=== PATIENT | female | born 1930 | race Caucasian/White ===

== ENCOUNTER 2017-07-06 11:10 | Inpatient (IN) ==
--- NOTE | 2017-07-06 11:59 | Emergency Department Note ---
Disposition Clinical Impression: Atrial fibrillation with RVR, ANAY (acute kidney injury) Failure to thrive Qualifiers: Failure to thrive age range: in adult Qualified Code(s): R62.7 - Adult failure to thrive Disposition: Admitted As Inpatient Condition: Good Referrals: Bhavna Colunga MD [Primary Care Provider] - Forms: ED Satisfaction Letter, Work/School Release Time of Disposition: 14:19 General Adult HPI - General Chief complaint: ED General Medical Stated complaint: decreased intake, cough Time Seen by Provider: 07/06/17 11:19 Source: family Limitations: no limitations Nursing Notes Reviewed: Yes Vital Signs Reviewed: Yes - History of Present Illness HPI Narrative: Patient is an 87-year-old female that is brought into the emergency room by her family for concerns for failure to thrive. They states that over the past couple months she has been losing weight and not eating as much. She states that she just does not have an appetite. They state that she has lost approximately 10 pounds in the past month. She was also recently at her primary care physician and diagnosed with bronchitis and given a Z-Hubert for which she finished approximately 2 days ago. They called the primary care physician today and they recommended that she come to be seen in the emergency department. He states that she has become weaker and more short of breath with exertion. Patient denies any nausea or vomiting but does state that she has had some diarrhea and the family reports possibly some reddish color within the stool. Patient's son reports that she had an x-ray done on Monday which showed possible pulmonary edema. Pain Scale: 0 - Related Data Home Medications Medication Instructions Recorded Confirmed Simvastatin [Zocor] 40 mg PO DAILY 07/25/15 07/25/15 Folic Acid 1 mg PO DAILY 07/06/17 07/06/17 Furosemide [Lasix] 40 mg PO DAILY 07/06/17 07/06/17 Hydroxychloroquine [Plaquenuil] 300 mg PO DAILY 07/06/17 07/06/17 Methotrexate [Otrexup] 12.5 mg PO QWEEK 07/06/17 07/06/17 Omeprazole [PriLOSEC] 40 mg PO DAILY 07/06/17 07/06/17 Oxycodone HCl [Oxycodone HCl] 5 mg PO TID PRN 07/06/17 07/06/17 Potassium Chloride [K-Tab ER] 10 meq PO DAILY 07/06/17 07/06/17 Rivaroxaban [Xarelto] 15 mg PO DAILY 07/06/17 07/06/17 sulfaSALAzine [Sulfasalazine] 500 mg PO BID 07/06/17 07/06/17 Allergies Allergy/AdvReac Type Severity Reaction Status Date / Time No Known Allergies Allergy Verified 07/06/17 11:28 All systems ED: reviewed and negative except as stated. Constitutional: Denies: fever, chills Cardiovascular: Denies: chest pain, palpitations Respiratory: Reports: cough, dyspnea. Denies: wheezes Gastrointestinal: Reports: diarrhea. Denies: abdominal pain, nausea, vomiting Genitourinary: Denies: urgency, dysuria, frequency, hematuria Neurological: Reports: weakness Endocrine: Reports: fatigue Past Medical History - Past Medical History Medical history: Reports: atrial fibrillation, CHF, hyperlipidemia, hypertension , RA Surgical history: Reports: hip replacement, knee replacement Psychiatric history: Reports: no psych history CONSTRUCTION PROJECT ASSISTANT history: Reports: no CONSTRUCTION PROJECT ASSISTANT history - Social History Smoking Status: Never smoker Smokeless Tobacco Status: No Alcohol use: Reports: none Drug use: Reports: none Physical Exam - General Limitations: no limitations General appearance: alert, in no apparent distress - Head Head exam: atraumatic, normocephalic - Eye Eye exam: Present: normal appearance, EOMI - Neck Neck exam: Present: normal inspection, full ROM, trachea midline - Respiratory Respiratory exam: Present: other (Diffuse rales bilaterally). Absent: respiratory distress - Cardiovascular Cardiovascular exam: Present: tachycardia, irregular rhythm, normal heart sounds , +S1, +S2 - Abdominal Exam Abdominal exam: Present: soft, Non-Tender, normal bowel sounds - Extremities Exam Extremities exam: Present: other (1+ pitting edema bilateral lower extremities) - Neurological Exam Neurological exam: Present: alert, oriented X3 - Psychiatric Psychiatric exam: Present: normal affect, normal mood - Skin Skin exam: Present: warm, dry, intact Course Vital Signs Temperature 98.3 F 07/06/17 11:12 Pulse Rate 132 07/06/17 11:12 Respiratory Rate 18 07/06/17 11:12 Blood Pressure 95/71 07/06/17 11:12 O2 Sat by Pulse Oximetry 93 07/06/17 11:12 Temperature 98.3 F 07/06/17 11:12 Pulse Rate 118 07/06/17 14:57 Respiratory Rate 22 07/06/17 14:57 Blood Pressure 99/83 07/06/17 14:57 O2 Sat by Pulse Oximetry 94 07/06/17 14:57 Oxygen Delivery Oxygen Delivery Room Air Medical Decision Making - MDM Narrative Medical decision making narrative: Due to the patient having failure to thrive and weight loss we will order CBC, BMP, urinalysis, EKG, troponin, chest x-ray as well as a CT of the head. Per radiology the CT of the head showed no acute findings. Per radiology the chest x-ray showed improvement of the patient's congestive heart failure and possible basilar atelectasis on the left. The patient was unable to provide a urine obtained a urinalysis. Patient does appear to have a decrease in her kidney function. Her creatinine is 1.2 with a GFR of 43. Patient's troponin was 0.03. EKG showed atrial fibrillation with rapid ventricular response. The patient will need to be admitted to the hospital at this time. I called spoke with the hospitalist and have accepted the patient to his service. The patient will be admitted to the hospital this time. - Medical Records Medical records reviewed: Yes I reviewed the patient's medical records. - Lab Data Lab results reviewed: Yes I reviewed the patient's lab results. Result diagrams: 07/06/17 12:39 07/06/17 12:39 Lab Results 07/06/17 07/06/17 07/06/17 Range/Units 12:39 12:39 12:39 WBC 7.9 (4.3-11.1) K/mcL RBC 4.95 (3.82-4.97) M/mcL Hgb 16.0 H (11.5-15.4) g/dL Hct 48.7 H (35.3-44.9) % MCV 98.4 (83.0-100.0) fL MCH 32.3 (28.0-33.3) pg MCHC 32.9 (31.6-35.5) g/dL RDW 13.9 (11.5-14.5) % Plt Count 241 (140-400) K/mcL MPV 10.3 (9.4-12.4) fL Immature Gran % 0.3 (0-4) % Seg Neutrophils % 69.9 % Lymphocytes % 22.4 % Monocytes % 6.9 % Eosinophils % 0.1 % Basophils % 0.4 % Neutrophils # 5.5 (1.6-8.9) K/mcL Lymphocytes # 1.8 (0.6-4.6) K/mcL Monocytes # 0.6 (0.0-1.3) K/mcL Eosinophils # 0.0 (0.0-0.6) K/mcL Basophils # 0.0 (0.0-0.2) K/mcL Nucleated RBCs/100 WBC 0.3 H (0) /100 WBC Platelet Estimate Normal (Normal) Sodium 142 (136-145) mEq/L Potassium 4.0 (3.5-5.1) mEq/L Chloride 100 (98-107) mEq/L Carbon Dioxide 29 (23-29) mEq/L BUN 26 H (8-23) mg/dL Creatinine 1.20 (0.60-1.20) mg/dL Est GFR ( Amer) 52 L (> 60) Est GFR (Non-Af Amer) 43 L (> 60) BUN/Creatinine Ratio 22 (6-26) Glucose 128 H (70-105) mg/dL Calculated Osmolality 300 (280-300) Calcium 9.7 (8.6-10.3) mg/dL Troponin I 0.03 (< 0.04) ng/mL - Radiology Data Radiology results reviewed: Yes I reviewed the patient's radiology results. Chest X-Ray 07/06/17 11:59 IMPRESSION: Overall improvement of congestive heart failure. Left basilar atelectasis likely related to elevation of the left hemidiaphragm. D/ / 07/06/2017 12:59:59 Maty Webster MD / Jessica Campos Interpreting Provider: Maty Webster MD Head CT 07/06/17 11:59 IMPRESSION: 1. No evidence of acute intracranial abnormality. 2. Paranasal sinus disease as described above. D/ / 07/06/2017 13:14:14 Jerson Lee MD / Jessica Campos Interpreting Provider: Jerson Lee MD - EKG Data EKG #1 EKG attestation: Yes I reviewed and interpreted this EKG. EKG results narrative: EKG shows atrial fibrillation with rapid ventricular response at a rate of 127 bpm. QRS duration is 76, QTc of 383. No STEMI noted on this EKG. This is compared to previous EKG on 07/25/15 that showed atrial fibrillation at 87 bpm
--- NOTE | 2017-07-06 12:00 | Emergency Department Note ---
START Narrative - START START: I examined this patient and my medical decision-making was reviewed with the APARTMENT MAINTENANCE WORKER/PA/Advanced Practice Nurse/Resident Physician. I agree with the documented findings, disposition and treatment plan as described except to the extent set forth below. ED attending: Patient's emergency medicine resident Dr. Ronen Layne. Please see copy of this note for H&P evaluation and management and ED disposition. We both had independent [id number] time in contact with this patient. Briefly: A 87-year-old female brought in by family for in essence failure to thrive for several months with decreasing energy and weight loss to Explain. Was Seen a Week Ago and Diagnosed with Bronchitis by Her PCP Put on Zithromax. Says Some Loose Stools. Maybe with Some Redness. She Has Bibasilar Rales. She Is Awake and Alert GCS 15. Afebrile with Stable Vital Signs. Patient Will Get Screening Labs EKG Urinalysis and Chest X-Ray. Disposition Pending.
[2017-07-06 12:47] LABS: Basophils % 0.4 %; Eosinophils % 0.1 %; Hematocrit 48.7 % (35.3-44.9); Immature Granulocytes % 0.3 % (0-4); Lymphocytes # 1.8 K/mcL (0.6-4.6); Lymphocytes % 22.4 %; Mean Corpuscular HGB Conc 32.9 g/dL (31.6-35.5); Mean Corpuscular Hemoglobin 32.3 pg (28.0-33.3); Mean Corpuscular Volume 98.4 fL (83.0-100.0); Mean Platelet Volume 10.3 fL (9.4-12.4); Monocytes % 6.9 %; Neutrophils # 5.5 K/mcL (1.6-8.9); Nucleated Red Blood Cells 0.3 /100 WBC (0); Platelet Count 241 K/mcL (140-400); Red Blood Count 4.95 M/mcL (3.82-4.97); Red Cell Distribution Width 13.9 % (11.5-14.5); Segmented Neutrophils % 69.9 %
[2017-07-06 12:49] LABS: Monocytes # 0.6 K/mcL (0.0-1.3)
[2017-07-06 13:12] LABS: Calcium 9.7 mg/dL (8.6-10.3)
[2017-07-06 14:13] LABS: Platelet Estimate Normal (Normal)
[2017-07-06] MEDS ORDERED: *HR* Metoprolol 5 MG/5 ML VIAL IVP ONE (15:10)
[2017-07-06] MEDS ORDERED: 0.9 % Sodium Chloride 1,000 ML IVC SCH ×2 (15:15→17:47)
[2017-07-06] MEDS ORDERED: *HR* Digoxin 0.5 MG/2 ML AMPUL IVP ONE (17:47)
--- NOTE | 2017-07-06 17:47 | Event Note ---
Date of Encounter: 07/06/17 Time of Encounter: 17:43 Patient seen and examined with nurse practitioner. Patient presents with generalized weakness lethargy, decreased appetite. The patient was recently treated for acute bronchitis and was started on azithromycin. Continues to notice increased cough and sputum production. She was never a smoker and has no chronic lung conditions. Will check sputum culture. Start the patient on Levaquin 750 mg IV daily. Check swallow eval. Patient has afib with RVR, and ANAY so will gently hydrate. Digoxin 0.125 mg IV once. PT OT and social workers to see the patient
[2017-07-06] MEDS ORDERED: Acetaminophen 325 MG TABLET PO PRN (19:09)
[2017-07-06] MEDS ORDERED: Naloxone 0.4 MG/ML INJ IVP PRN (19:09)
[2017-07-06] MEDS ORDERED: Ondansetron 4 MG/2 ML VIAL IVP PRN (19:09)
[2017-07-06] MEDS ORDERED: *HR* OxyCODONE Immed Rel 5 MG TABLET PO PRN (19:19)
[2017-07-06] MEDS: sulfaSALAzine 500 MG TABLET PO SCH (20:25)
[2017-07-06] MEDS: Levofloxacin 750 MG/150 ML 750 MG/150 ML BAG IVPB SCH (20:27)
[2017-07-06] MEDS ORDERED: Benzonatate 100 MG CAPSULE PO PRN (20:34)
--- NOTE | 2017-07-06 20:39 | Internal Med History&Physical ---
Date of Encounter: 07/06/17 Time of Encounter: 18:00 Assessment and Plan (1) Acute exacerbation of CHF (congestive heart failure) Current visit: Yes Status: Acute Acute exacerbation of CHF complicated by current unresolved bronchitis. Pt. reports increased dyspnea, SOB, and cough over the past several days as well as bilateral pedal edema. 1-View CXR today shows overall improvement of congestive heart failure. Left basilar atelectasis likely related to elevation of the left hemidiaphragm. Pt. takes PO lasix 40 mg daily. Will hold PO lasix and administer 20 mg IVP lasix BID. Continuous cardiac telemetry. Monitor I&O and daily weight. 1.5L daily fluid restriction. Pt. discussed w/Dr. Olguin who is in agreement w/plan of care. Pt. is at high risk for further morbidity, infection, and/or cardiac/respiratory distress based on current sx, failure to thrive, hx, and risk factors. Inpatient. Qualifiers: Congestive heart failure type: unspecified congestive heart failure type Qualified Code(s): I50.9 - Heart failure, unspecified (2) Bronchitis Current visit: Yes Status: Acute Acute bronchitis that was dx by PCP on Monday. Pt. reports she was placed on Z- pack which she finished on Monday but sx worsened. Sputum culture ordered. IVPB levaquin 750 Q48 for infection coverage d/t current ANAY. Will adjust abx coverage based on sputum results. (3) ANAY (acute kidney injury) Current visit: Yes Status: Acute ANAY with current creatinine of 1.20 and GFR 43 on admission. Will use IV fluids judiciously if warranted d/t current ANAY superimposed w/CHF exacerbation. Will hold methotrexate and other nephrotoxins. Monitor I&O. (4) Failure to thrive Current visit: Yes Status: Acute Acute failure to thrive. Pt. reports reduced appetite over the past 6-7 days and a 10-pound weight loss over the past month. Nutrition consult ordered for PO supplementation. Qualifiers: Failure to thrive age range: in adult Qualified Code(s): R62.7 - Adult failure to thrive (5) HLD (hyperlipidemia) Current visit: Yes Status: Chronic Hx of chronic HLD. ipid panel in a.m. labs. Continue pts. Zocor. Qualifiers: Hyperlipidemia type: pure hypercholesterolemia Qualified Code(s): E78.00 - Pure hypercholesterolemia, unspecified; E78.0 - Pure hypercholesterolemia (6) HTN (hypertension) Current visit: Yes Status: Chronic Hx of chronic HTN. Monitor pt. and VS. Pt. does not currently take HTN medication. Will add digoxin 0.125 IV once. Qualifiers: Hypertension type: essential hypertension Qualified Code(s): I10 - Essential (primary) hypertension (7) Rheumatoid arthritis Current visit: Yes Status: Chronic Hx of chronic RA. Pt. takes methotrexate for RA once weekly. Will hold for now d /t nephrotoxic qualities and patient's current ANAY. Stair-step pain medications for pain mgmt. Continue patient's sulfasalazine and Plaquenil. Qualifiers: Rheumatoid arthritis location: unspecified site Rheumatoid factor presence : unspecified presence Qualified Code(s): M06.9 - Rheumatoid arthritis, unspecified (8) Atrial fibrillation with RVR Current visit: Yes Status: Chronic Hx of chronic Afib. Continue pts. Xarelto. Continuous cardiac telemetry. (9) DVT prophylaxis Current visit: Yes Status: Acute Continue patient's Xarelto for DVT prophylaxis. Monitor patient for signs of bleeding. Internal Medicine - H&P: HPI Chief complaint: Weakness/Failure to thrive Admitted From: Emergency Dept Plans for Post Hospital Care: Home History of present illness: Ms. Martínez is a 87 year old female with medical hx of chronic atrial fibrillation , CHF, HLD, HTN, NRA presents from the ED with chief complaint of generalized weakness, decreased take the past 6-7 days, loss of 10 pounds in 1, and increasing cough. Patient reports she was seen by PCP on Monday and diagnosed with bronchitis and placed on Z-Hubert which she finished on Monday. Patient reports symptoms have not subsided and have worsened. Patient's son reports presents of bright blood in patient's stool within the past 3-4 weeks. Patient reports SOB/dyspnea and recent anorexia but denies recent illness, fever, chills , nausea, vomiting, headache, changes in vision, chest pain, abdominal pain, diarrhea, constipation, numbness, tingling, dizziness, lightheadedness, pre- syncope, or syncope. Past Med Surg Social Fam HX - Past Medical History Source: patient, old records reviewed, obtained from family Medical history: atrial fibrillation, CHF, hyperlipidemia, hypertension, RA Psychiatric history: no psych history - Past Surgical History Surgical History: hip replacement, knee replacement - Social History Smoking Status: Never smoker Smokeless Tobacco Status: No Alcohol use: none Drug use: none Current living situation: Home, With Family Activity Level: Uses cane/walker Recent Out of Country Travel Within the Last 8 Weeks: No Exposure or Possible Exposure to Illness During Travel: No - Family History Mother Race: Family Member Ethnicity: Non- Living Status: Age at : 84 Cause of : Heart failure Hx Family Cardiac Disorders: Yes (HF) Father Race: Family Member Ethnicity: Non- Living Status: Age at : 71 Cause of : [place] Hx Family Cardiac Disorders: Yes (LA) Brother Race: Family Member Ethnicity: Non- Living Status: Age at : 80 Cause of : LA Hx Family Cardiac Disorders: Yes (LA x4, Open heart surgery) Internal Medicine - H&P: Meds Simvastatin [Zocor] 40 mg PO HS 07/25/15 [History] Folic Acid 1 mg PO DAILY 07/06/17 [History] Furosemide [Lasix] 40 mg PO DAILY 07/06/17 [History] Hydroxychloroquine [Plaquenuil] 300 mg PO DAILY 07/06/17 [History] Methotrexate [Otrexup] 12.5 mg PO QWEEK 07/06/17 [History] Omeprazole [PriLOSEC] 40 mg PO DAILY 07/06/17 [History] Oxycodone HCl [Oxycodone HCl] 5 mg PO TID PRN 07/06/17 [History] Potassium Chloride [K-Tab ER] 10 meq PO DAILY 07/06/17 [History] Rivaroxaban [Xarelto] 15 mg PO DAILY 07/06/17 [History] sulfaSALAzine [Sulfasalazine] 500 mg PO BID 07/06/17 [History] 3 Allergy/AdvReac Type Severity Reaction Status Date / Time No Known Allergies Allergy Verified 07/06/17 11:28 All Systems PM: A 10-system review of systems was performed and is negative for pertinent findings except as documented above in the HPI. - Constitutional Constitutional: as per HPI, fatigue, weakness, weight loss, no chills, no fever( s), no night sweats - EENT Eyes: no change in vision, no discharge, no pain, no photophobia Ears: no ear discharge, no ear pain, no tinnitus Nose, mouth and throat: no dysphagia, no nasal discharge, no neck pain, no sore throat - Breasts Breasts: as per HPI - Cardiovascular Cardiovascular ROS IM: as per HPI, dyspnea, dyspnea on exertion, edema, irregular heart rhythm, orthopnea, no chest pain, no diaphoresis, no lightheadedness, no palpitations, no syncope - Respiratory Respiratory: as per HPI, cough, dyspnea, dyspnea on exertion, no wheezing, no excessive phlegm production - Gastrointestinal Gastrointestinal: hematochezia (3-4 weeks ago), no abdominal pain, no diarrhea, no hematemesis, no melena, no nausea, no vomiting - Genitourinary Genitourinary: no change in urinary stream, no dysuria, no flank pain, no hematuria Menstruation: as per HPI - Musculoskeletal Musculoskeletal ROS IM: no numbness, no tingling - Integumentary Integumentary IM: no rash, no unusual bruising - Neurological Neurological ROS: no confusion, no convulsions, no focal weakness, no numbness, no tingling, no tremor(s) - Psychiatric Psychiatric: as per HPI - Endocrine Endocrine IM: as per HPI - Hematologic/Lymphatic Hematologic/Lymphatic: no easy bruising - Allergic/Immunologic Allergic/Immunologic: as per HPI - Constitutional Vitals: Temp Pulse Resp BP Pulse Ox 97.4 F L 110 15 101/70 91 07/06/17 18:49 07/06/17 18:49 07/06/17 18:49 07/06/17 18:49 07/06/17 18:49 General appearance: Present: cooperative, A&O X 3, pleasant, no acute distress, underweight, answers questions appropriately - Head Head exam: Present: atraumatic, normocephalic - Eye Eye exam: Present: PERRL, conjuntiva pink, sclera anicteric Pupils: Present: PERRL - ENT ENT exam: Present: normal exam - Neck Neck exam general surgery: Present: normal inspection, supple, trachea midline. Absent: lymphadenopathy - Respiratory Respiratory exam: Present: accessory muscle use, wheezes - Cardiovascular Cardiovascular exam: Present: irregular rhythm - GI/Abdominal GI/Abdominal exam: Present: normal bowel sounds, soft, no peritoneal signs. Absent: distended, tenderness - Rectal Rectal exam: Present: deferred - Additional comments: exam deferred. - Extremities Exam Extremities exam: Present: pedal edema, warm, radial pulses palpable and symmetrical. Absent: calf tenderness, cyanotic - Back Exam Back exam: Present: normal inspection - Neurological Exam Neurological exam: Present: CN II-XII intact, oriented X3, no focal deficits. Absent: pronater drift, facial droop, speech deficit - Psychiatric Psychiatric exam: Present: normal affect, normal mood - Skin Skin exam: Present: dry, intact Internal Med - H&P Results - Labs CBC & Chem 7: 07/06/17 12:39 07/06/17 12:39 - EKG Data Prior EKG available for review: yes EKG comments: 07/06/17 20:45 EKG dated 07/25/15 is atrial fibrillation with possible inferior myocardial infarction of indeterminate age. EKG dated 07/06/17 shows atrial fibrillation with rapid ventricular response, low QRS voltage in precordial leads, and abnormal rhythm ECG. - Diagnostic Studies Chest x-ray Additional comments: Impressions Chest X-Ray 07/06/17 11:59 IMPRESSION: Overall improvement of congestive heart failure. Left basilar atelectasis likely related to elevation of the left hemidiaphragm. D/ / 07/06/2017 12:59:59 Maty Webster MD / Jessica Campos Interpreting Provider: Maty Webster MD CT scan - head Additional comments: Impressions Head CT 07/06/17 11:59 IMPRESSION: 1. No evidence of acute intracranial abnormality. 2. Paranasal sinus disease as described above. D/ / 07/06/2017 13:14:14 Jerson Lee MD / Jessica Campos Interpreting Provider: Jerson Lee MD
[2017-07-06] MEDS: Furosemide 20 MG/2 ML VIAL IVP SCH (21:40)
[2017-07-07] MEDS: dilTIAZem HCl 100 MG in D5% in Water 50 ML IVC SCH ×3 (01:14→13:00)
[2017-07-07] MEDS ORDERED: 0.9 % Sodium Chloride 250 ML ONE (01:17)
[2017-07-07 06:36] LABS: Basophils % 0.2 %; Hemoglobin 14.5 g/dL (11.5-15.4); Immature Granulocytes % 0.2 % (0-4); Lymphocytes % 16.5 %; Mean Corpuscular Hemoglobin 32.5 pg (28.0-33.3); Mean Corpuscular Volume 98.7 fL (83.0-100.0); Mean Platelet Volume 10.8 fL (9.4-12.4); Monocytes # 0.4 K/mcL (0.0-1.3); Monocytes % 6.7 %; Neutrophils # 4.8 K/mcL (1.6-8.9); Platelet Count 223 K/mcL (140-400); Red Blood Count 4.46 M/mcL (3.82-4.97); Red Cell Distribution Width 13.8 % (11.5-14.5); Segmented Neutrophils % 76.4 %
[2017-07-07 06:49] LABS: Hemoglobin A1C 5.9 %
[2017-07-07 06:54] LABS: Alanine Aminotransferase 9 Units/L (7-52); Albumin 3.6 g/dL (3.5-5.7); Albumin/Globulin Ratio 1.4 (1.1-2.2); Alkaline Phosphatase 72 Units/L (34-104); Aspartate Amino Transferase 25 Units/L (13-39); BUN/Creatinine Ratio 22 (6-26); Bilirubin,Total 0.5 mg/dL (0.3-1.0); Blood Urea Nitrogen 23 mg/dL (8-23); Calcium 8.9 mg/dL (8.6-10.3); Carbon Dioxide 27 mEq/L (23-29); Chloride 102 mEq/L (98-107); Chol/HDL Ratio 5.6 (0-4.9); Cholesterol 157 mg/dL (< 200); Globulin 2.6 g/dL (2.4-3.5); Glucose 113 mg/dL (70-105); HDL Cholesterol 28 mg/dL (40-59); LDL Cholesterol,Calculated 100 mg/dL (0-99); Magnesium 1.3 mg/dL (1.6-2.6); Osmolality,Calculated 302 (280-300); Potassium 3.3 mEq/L (3.5-5.1); Sodium 144 mEq/L (136-145); Total Protein 6.2 g/dL (6.4-8.9); Triglycerides 144 mg/dL (< 150); eGFR For African Americans > 60 (> 60); eGFR For Non-African Americans 51 (> 60)
[2017-07-07] MEDS: sulfaSALAzine 500 MG TABLET PO SCH ×2 (08:43→21:23)
[2017-07-07] MEDS: Furosemide 20 MG/2 ML VIAL IVP SCH (08:43)
[2017-07-07] MEDS: Folic Acid 1 MG TABLET PO SCH (08:43)
--- NOTE | 2017-07-07 08:44 | Cardiology Consult Note ---
Date of Encounter: 07/07/17 Time of Encounter: 08:45 Assessment and Plan (1) Bronchitis Current Visit: Yes Status: Acute Per Cardiology: Management per primary service. On antibiotics. (2) Atrial fibrillation with RVR Current Visit: Yes Status: Chronic Per Cardiology: Known history of atrial fibrillation-- currently A. fib with RVR suspect exacerbated by acute bronchitis and low magnesium. On Cardizem drip at 15 mg per hour. Current systolic blood pressure in the 130s. Patient appears overall relatively asymptomatic. We'll give IV Lopressor 5 mg 1 now. On Lopressor 75 mg by mouth twice a day at home-- will resume starting at 25 mg by mouth twice a day and titrate based on blood pressure response. Suspect A. fib driven by acute bronchitis and hypomagnesemia. Discussed with primary service and recommend transfer to higher acuity floor. Regarding long-term anticoagulation, already on Xarelto 15mg PO daily at home. Upon review of records it appears normal kidney function up until this past January and Dr. Campos had decreased dose. Kidney function improved with discontinuation of ARB and HCTZ. Current kidney function overall stable, very mild ANAY on IV Lasix. We'll resume Xarelto 20 mg by mouth day seen for now. Will discuss and review with Dr. Javier. (3) Hypomagnesemia Current Visit: Yes Status: Acute Per Cardiology: Mg = 1.3, will give 4 grams Mag, check mag in am. (4) Acute exacerbation of CHF (congestive heart failure) Current Visit: Yes Status: Acute Per Cardiology: Chest X-Ray 07/06/17 11:59 IMPRESSION: Overall improvement of congestive heart failure. Left basilar atelectasis likely related to elevation of the left hemidiaphragm. BNP only very mild elevation 209. Last echo 06/2016: LVEF 55-60%.Indeterminate diastolic function. Normal right ventricular structure and function. Moderately dilated left atrium. Severely dilated right atrium. Mild aortic regurgitation. Mild mitral regurgitation. Moderate tricuspid regurgitation. Moderate to severe pulmonary hypertension. Will consider echo once HR controlled. Qualifiers: Congestive heart failure type: unspecified congestive heart failure type Qualified Code(s): I50.9 - Heart failure, unspecified (5) ANAY (acute kidney injury) Current Visit: Yes Status: Acute Per Cardiology: Very mild ANAY. On IV lasix 20mg BID. Overall clinically relatively euvolemic on exam. Will resume home dose of Lasix 40 mg by mouth daily. Discussion w patient/family: The assessment and plan as outlined above was discussed with the patient and/or family members who expressed understanding and agreement. All questions were answered. Thank you for involving us in the care of your patient. Please call with any questions. History of Present Illness Consult date: 07/07/17 Requesting physician: Abdirahman Olguin Consult reason: Afib RVR Chief complaint: Cough History of present illness: Ms. Martínez is a 87 year old female with a relevant past medical history of atrial fibrillation, CHF, hypertension, hyperlipidemia. Sees Dr. Campos with cardiology and last seen April 2017. Cardiology consult for A. fib with RVR. Patient reports over the past few days development of cough with production of yellow sputum. She reports told to come to ER by her PCP. She lives at home with her son. She denies any chest pain or palpitations. Does report short of breath at rest, however slightly improved since admission. She denies any significant swelling to lower extremities from baseline. Denies any active bleeding or blood loss. Reports compliance with Xarelto at home. She denies any fever, chills, nausea, vomiting, diarrhea. Currently denies any chest pain or palpitations despite heart rate in A. fib in the 150s to 160s. Denies any dizziness. Past Med Surg Social Fam HX - Past Medical History Attestation: Yes The following information was validated with the patient. Source: patient, old records reviewed Medical history: atrial fibrillation, CHF, hyperlipidemia, hypertension, RA Psychiatric history: no psych history - Past Surgical History Surgical History: hip replacement, knee replacement - Social History Smoking Status: Never smoker Smokeless Tobacco Status: No Alcohol use: none Drug use: none - Family History Mother Race: Family Member Ethnicity: Non- Living Status: Age at : 84 Cause of : Heart failure Hx Family Cardiac Disorders: Yes (HF) Hx Family Respiratory Disorders: No Hx Family Cancer: No Hx Family GI Disorders: No Hx Family Genitourinary Disorders: No Hx Family Endocrine Disorder: No Hx Family Musculoskeletal Disorders: No Hx Family Neuromuscular Disorders: No Hx Family Neurologic Disorders: No Hx Family HEENT Disorders: No Hx Family Autoimmune Disorders: No Hx Family Reproductive Disorders: No Hx Family Psychosocial Disorders: No Hx Family Medical Disorders: No Father Race: Family Member Ethnicity: Non- Living Status: Age at : 71 Cause of : [place] Hx Family Cardiac Disorders: Yes ([place]) Hx Family Respiratory Disorders: No Hx Family Cancer: No Hx Family GI Disorders: No Hx Family Genitourinary Disorders: No Hx Family Endocrine Disorder: No Hx Family Musculoskeletal Disorders: No Hx Family Neuromuscular Disorders: No Hx Family Neurologic Disorders: No Hx Family HEENT Disorders: No Hx Family Autoimmune Disorders: No Hx Family Reproductive Disorders: No Hx Family Psychosocial Disorders: No Hx Family Medical Disorders: No Brother Race: Family Member Ethnicity: Non- Living Status: Age at : 80 Cause of : [place] Hx Family Cardiac Disorders: Yes ([place] x4, Open heart surgery) Medications and Allergies Simvastatin [Zocor] 40 mg PO HS 07/25/15 [History] Folic Acid 1 mg PO DAILY 07/06/17 [History] Furosemide [Lasix] 40 mg PO DAILY 07/06/17 [History] Hydroxychloroquine [Plaquenuil] 300 mg PO DAILY 07/06/17 [History] Methotrexate [Otrexup] 12.5 mg PO QWEEK 07/06/17 [History] Omeprazole [PriLOSEC] 40 mg PO DAILY 07/06/17 [History] Oxycodone HCl [Oxycodone HCl] 5 mg PO TID PRN 07/06/17 [History] Potassium Chloride [K-Tab ER] 10 meq PO DAILY 07/06/17 [History] Rivaroxaban [Xarelto] 15 mg PO DAILY 07/06/17 [History] sulfaSALAzine [Sulfasalazine] 500 mg PO BID 07/06/17 [History] 3 Allergy/AdvReac Type Severity Reaction Status Date / Time No Known Allergies Allergy Verified 07/06/17 11:28 All Systems Review: A 10-system review of systems was performed and is negative for pertinent findings except as documented above in the HPI. - Constitutional Constitutional: fatigue - Cardiovascular Cardiovascular: as per HPI, leg edema - Respiratory Respiratory: cough, dyspnea Physical Examination Vital Signs, Last 4 Hours Temp Pulse Resp BP Pulse Ox 07/07/17 07:41 98.0 F 164 16 132/74 91 07/07/17 06:42 145 16 118/83 General: Conversant, No Apparent Distress HEENT: Atraumatic, Normocephaly, Mucus Membranes Moist Neck: No JVD, Normal carotid pulses Cardiac: Normal S1 and S2, No Murmur, Other (Irregularly irregular) Lungs: Normal Breath Sounds, No Wheeze, Rales, Rhonchi Neuro: Alert and responsive, No focal deficits noted Abdomen: Soft, Non-Tender Skin: No rashes noted on visualized skin Musculoskeletal: No Chest Wall Tenderness Extremities: No Clubbing, No Cyanosis, Normal Pulses, Other (+1 nonpitting bilateral LE edema) Results 07/07/17 06:03 07/07/17 06:03 Lab Results Laboratory Tests 07/06/17 07/06/17 07/06/17 12:39 12:39 21:12 Creatinine 1.20 Est GFR (Non-Af Amer) 43 L Magnesium AST ALT Troponin I 0.03 B-Natriuretic Peptide 209 H 07/07/17 06:03 Creatinine 1.03 Est GFR (Non-Af Amer) 51 L Magnesium 1.3 L AST 25 ALT 9 Troponin I B-Natriuretic Peptide ITS Impressions Chest X-Ray 07/06/17 11:59 IMPRESSION: Overall improvement of congestive heart failure. Left basilar atelectasis likely related to elevation of the left hemidiaphragm. D/ / 07/06/2017 12:59:59 Maty Webster MD / Jessica Campos Interpreting Provider: Maty Webster MD Head CT 07/06/17 11:59 IMPRESSION: 1. No evidence of acute intracranial abnormality. 2. Paranasal sinus disease as described above. D/ / 07/06/2017 13:14:14 Jerson Lee MD / Jessica Campos Interpreting Provider: Jerson Lee MD Intake & Output 07/04/17 07/05/17 07/06/17 07/07/17 23:59 23:59 23:59 23:59 Intake Total 150 / 150 100.0 / 100.0 Output Total 700 / 700 Balance 150 / 150 -600.0 / -600.0 Weight 51.982 kg 52.118 kg Active Medications Acetaminophen (Tylenol) 650 mg PO Q6HR PRN PRN Reason: Mild Pain (1-3) Stop: 01/05/18 19:10 Benzonatate (Tessalon) 100 mg PO TID PRN PRN Reason: Cough Stop: 01/05/18 20:35 Folic Acid (Folic Acid) 1 mg PO DAILY ANETA Stop: 01/06/18 09:01 Last Admin: 07/07/17 08:43 Dose: 1 mg Furosemide (Lasix) 20 mg IVP BIDDIURETIC ANETA Stop: 01/05/18 21:01 Last Admin: 07/07/17 08:43 Dose: 20 mg Hydroxychloroquine Sulfate (Plaquenuil) 300 mg PO DAILY ANETA Stop: 01/06/18 09:01 Levofloxacin/Dextrose (Levaquin Premix 750mg/150 Ml) 750 mg in 150 mls @ 100 mls/hr IVPB Q48H ANETA PRN Reason: Protocol Stop: 01/05/18 20:01 Last Infusion: 07/06/17 21:55 Dose: Infused Diltiazem HCl 100 mg/ Dextrose 50 mls @ 2.5 mls/hr IVC .Q20H ANETA; 5 MG/HR PRN Reason: Protocol Stop: 01/06/18 00:46 Last Admin: 07/07/17 06:54 Dose: 15 mg/hr, 7.5 mls/hr Naloxone HCl (Narcan) 0.4 mg IVP Q2MIN PRN PRN Reason: Opioid Reversal Stop: 01/05/18 19:10 Omeprazole (Prilosec) 40 mg PO DAILY [facility] Stop: 01/06/18 09:01 Last Admin: 07/07/17 08:43 Dose: 40 mg Ondansetron HCl (Zofran) 4 mg IVP Q8HR PRN PRN Reason: Nausea And Vomiting Stop: 01/05/18 19:10 Oxycodone HCl (Roxicodone) 5 mg PO TID PRN PRN Reason: Pain Stop: 01/05/18 19:20 Last Admin: 07/07/17 08:43 Dose: 5 mg Potassium Chloride (Potassium Chloride) 10 meq PO DAILY [facility] Stop: 01/06/18 09:01 Last Admin: 07/07/17 08:43 Dose: 10 meq Rivaroxaban (Xarelto) 15 mg PO 1700 [facility] Stop: 01/06/18 17:01 Simvastatin (Zocor) 40 mg PO HS ANETA PRN Reason: Protocol Stop: 01/05/18 21:01 Last Admin: 07/06/17 20:25 Dose: 40 mg Sulfasalazine (Sulfasalazine) 500 mg PO BID ANETA Stop: 01/05/18 21:01 Last Admin: 07/07/17 08:43 Dose: 500 mg ECHO 06/2016: Impressions: LVEF 55-60%. Normal LV chamber size, wall thickness and function. Indeterminate diastolic function. Normal right ventricular structure and function. Moderately dilated left atrium. Severely dilated right atrium. Moderately calcified aortic valve leaflets. Mild aortic regurgitation. No evidence of aortic stenosis by Doppler. Mild mitral regurgitation. Moderate tricuspid regurgitation. Moderate to severe pulmonary hypertension. Estimated RVSP is 52 mmHg. Left Ventricular Wall Motion: Rest Echo Findings All wall segments showed normal motion. - Imaging and Cardiology Echo: report reviewed - EKG Interpretation EKG results cardiology: personally reviewed (Alicia thompson with RVR in the 120s, currently A. fib in the 160s on telemetry) Consult Discharge Plan - Plan Referrals: Bhavna Colunga MD [Primary Care Provider] -
[2017-07-07] MEDS ORDERED: Furosemide 40 MG TABLET PO SCH (09:00)
[2017-07-07] MEDS ORDERED: *HR* Metoprolol 5 MG/5 ML VIAL IVP ONE ×2 (10:09→10:11)
--- NOTE | 2017-07-07 11:58 | Event Note ---
Date of Encounter: 07/07/17 Time of Encounter: 11:55 - Cardiology Event Note Patient now transferred to higher acuity floor. Heart rate noted on telemetry A. fib in the 90s-- appears vastly improved with beta deandre. Monitor SBP. Wean IV Cardizem gtt. when able.
--- NOTE | 2017-07-07 12:02 | Electrocardiograph Report ---
[place] 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
--- NOTE | 2017-07-07 14:22 | Internal Med Progress Note ---
Date of Encounter: 07/07/17 Time of Encounter: 09:30 - Assessment and plan (1) Atrial fibrillation with RVR Current Visit: Yes Status: Chronic Assessment and plan: known hx A. fib. 06/2016 TTE with EF 55% and moderately dilated left atrium. ER EKG with A-fib RVR; HRs 127. HRs still in 150s-160s despite being on Cardizem gtt. BB added per Cardiology with improvement in HR. Cont Cardizem gtt, BB, Xarelto. Cardiology suspects RVR secondary to acute bronchitis and low magnesium. Optimize electrolytes; keep Mg greater than 2 and K greater than 4. TSH, echo pending. (2) Acute on chronic diastolic (congestive) heart failure Current Visit: Yes Status: Acute Assessment and plan: With known diastolic heart failure, on Lasix at home. With increased shortness of breath and lower extremity edema. CXR with overall improvement of CHF. Initially treated with IV lasix. Does not appear overly overloaded. Resume home lasix (3) Bronchitis Current Visit: Yes Status: Acute Assessment and plan: dx by PCP on Monday. Treated with Z-pack which she finished; now with persistent and worsening shortness of breath. CXR with no infiltrates. Continue IV Levaquin (renally dosed). Sputum culture, resp PCR and urinary antigens pending (4) HTN (hypertension) Current Visit: Yes Status: Chronic Assessment and plan: per hx. BP soft/borderline with Cardizem gtt and addition of BB. Closely monitor BP Qualifiers: Hypertension type: essential hypertension Qualified Code(s): I10 - Essential (primary) hypertension (5) Rheumatoid arthritis Current Visit: Yes Status: Chronic Assessment and plan: per hx. Cont home hydroxychloroquine Qualifiers: Rheumatoid arthritis location: unspecified site Rheumatoid factor presence : unspecified presence Qualified Code(s): M06.9 - Rheumatoid arthritis, unspecified (6) DVT prophylaxis Current Visit: Yes Status: Acute Assessment and plan: Xarelto - Time Spent With Patient less than 15 minutes - Subjective Interval history: Seen and examined at bedside; patient is new to me. Information obtained from chart review and patient report. Says she does not have much of an appetite and feels a little short of breath at times otherwise she has no complaints. No palpitations or chest pain. - Constitutional Vitals: Temp Pulse Resp BP Pulse Ox 99.1 F 86 18 94/53 94 07/07/17 11:16 07/07/17 13:00 07/07/17 13:00 07/07/17 13:00 07/07/17 11:00 General appearance: Present: cooperative, A&O X 3, pleasant, no acute distress, underweight, answers questions appropriately - Head Head exam: Present: atraumatic, normocephalic - Eye Eye exam: Present: PERRL, conjuntiva pink, sclera anicteric Pupils: Present: PERRL - Neck Neck exam general surgery: Present: supple, trachea midline. Absent: lymphadenopathy - Respiratory Respiratory exam: Present: rhonchi, wheezes. Absent: accessory muscle use, rales - Cardiovascular Cardiovascular exam: Present: RRR, +S1, +S2. Absent: diastolic murmur, gallop, rubs, systolic murmur - GI/Abdominal GI/Abdominal exam: Present: normal bowel sounds, soft, no peritoneal signs. Absent: distended, tenderness - Extremities Exam Extremities exam: Present: warm, radial pulses palpable and symmetrical. Absent : calf tenderness, cyanotic, pedal edema - Neurological Exam Neurological exam: Present: CN II-XII intact, oriented X3, no focal deficits. Absent: pronater drift, facial droop, speech deficit Additional comments: upper extremity tremors - Skin Skin exam: Present: dry, intact Internal Medicine: Result - Labs CBC & Chem 7: 07/07/17 06:03 07/07/17 06:03 Labs: Short CBC 07/07/17 Range/Units 06:03 WBC 6.3 (4.3-11.1) K/mcL Hgb 14.5 D (11.5-15.4) g/dL Hct 44.0 (35.3-44.9) % Plt Count 223 (140-400) K/mcL Neutrophils # 4.8 (1.6-8.9) K/mcL BMP 07/07/17 06:03 Sodium 144 Potassium 3.3 L Chloride 102 Carbon Dioxide 27 BUN 23 Creatinine 1.03 Glucose 113 H Calcium 8.9 Liver Function 07/07/17 Range/Units 06:03 Total Bilirubin 0.5 (0.3-1.0) mg/dL AST 25 (13-39) Units/L ALT 9 (7-52) Units/L Alkaline Phosphatase 72 (34-104) Units/L Albumin 3.6 (3.5-5.7) g/dL Consult Discharge Plan - Plan Referrals: Kenney Donis CNP [Advanced Practice Nurse] - (OFFICE WILL CALL PATIENT AT HOME WITH FOLLOW UP APPOINTMENT) Bhavna Colunga MD [Primary Care Provider] -
[2017-07-07] MEDS: *HR* Rivaroxaban 15 MG TABLET PO SCH (16:09)
[2017-07-07] MEDS ORDERED: *HR* Rivaroxaban 15 MG TABLET PO SCH (17:00)
[2017-07-08 05:12] LABS: Alanine Aminotransferase 7 Units/L (7-52); Albumin 3.4 g/dL (3.5-5.7); Albumin/Globulin Ratio 1.4 (1.1-2.2); Alkaline Phosphatase 65 Units/L (34-104); Aspartate Amino Transferase 23 Units/L (13-39); BUN/Creatinine Ratio 25 (6-26); Bilirubin,Total 0.5 mg/dL (0.3-1.0); Blood Urea Nitrogen 24 mg/dL (8-23); Calcium 9.1 mg/dL (8.6-10.3); Carbon Dioxide 28 mEq/L (23-29); Chloride 104 mEq/L (98-107); Globulin 2.4 g/dL (2.4-3.5); Glucose 113 mg/dL (70-105); Osmolality,Calculated 301 (280-300); Sodium 143 mEq/L (136-145); Total Protein 5.8 g/dL (6.4-8.9); eGFR For African Americans > 60 (> 60); eGFR For Non-African Americans 54 (> 60)
[2017-07-08] MEDS: Folic Acid 1 MG TABLET PO SCH (08:18)
[2017-07-08] MEDS: sulfaSALAzine 500 MG TABLET PO SCH ×2 (08:18→21:14)
[2017-07-08] MEDS: Furosemide 40 MG TABLET PO SCH (08:19)
--- NOTE | 2017-07-08 11:23 | Cardiology Progress Note ---
Date of Encounter: 07/08/17 Time of Encounter: 11:00 Assessment and Plan (1) Atrial fibrillation with RVR Current Visit: Yes Status: Chronic Per Cardiology: Known history of atrial fibrillation-- A. fib with RVR during stay suspect exacerbated by acute bronchitis and low magnesium. Started back on lopressor and cardize gtt waened off. HR currently 80-114 afib. Avg HR 97 over last 12 hours. Increase lopressor as tolerated. Increase to 50 mg BID. Noted to be on 75 mg BID at home. Regarding long-term anticoagulation, already on Xarelto. (2) Acute exacerbation of CHF (congestive heart failure) Current Visit: Yes Status: Acute Per Cardiology: Chest X-Ray 07/06/17 11:59 IMPRESSION: Overall improvement of congestive heart failure. Left basilar atelectasis likely related to elevation of the left hemidiaphragm. BNP only very mild elevation 209. Last echo 06/2016: LVEF 55-60%.Indeterminate diastolic function. Normal right ventricular structure and function. Moderately dilated left atrium. Severely dilated right atrium. Mild aortic regurgitation. Mild mitral regurgitation. Moderate tricuspid regurgitation. Moderate to severe pulmonary hypertension. Mild CHF on admit. Pedal edema noted. Continue oral lasix. Check TTE. Qualifiers: Congestive heart failure type: diastolic Qualified Code(s): I50.33 - Acute on chronic diastolic (congestive) heart failure Discussion w patient/family: The assessment and plan as outlined above was discussed with the patient and/or family members who expressed understanding and agreement. All questions were answered. Thank you for involving us in the care of your patient. Please call with any questions. Subjective Principal diagnosis: atrial fibrillation with RVR, mild CHF Objective Vital Signs, Last 4 Hours Temp Pulse Resp BP Pulse Ox 07/08/17 08:29 114 07/08/17 07:41 97.8 F 97 16 124/85 91 General: Conversant, No Apparent Distress HEENT: Atraumatic, Normocephaly, Mucus Membranes Moist Neck: No JVD, Normal carotid pulses Cardiac: Other (irregular) Lungs: Normal Breath Sounds, No Wheeze, Rales, Rhonchi Neuro: Alert and responsive, No focal deficits noted Abdomen: Soft, Non-Tender Skin: No rashes noted on visualized skin Musculoskeletal: No Chest Wall Tenderness Extremities: No Clubbing, No Cyanosis, No Edema, Normal Pulses Results 07/07/17 06:03 01/06/18 02:53 Lab Results 07/08/17 07/08/17 02:53 02:53 Sodium 143 Potassium 4.0 Chloride 104 Carbon Dioxide 28 BUN 24 H Creatinine 0.97 Glucose 113 H Calcium 9.1 Magnesium 2.7 H Total Bilirubin 0.5 AST 23 ALT 7 Alkaline Phosphatase 65 - EKG Interpretation EKG results cardiology: personally reviewed Consult Discharge Plan - Plan Referrals: Kenney Donis CNP [Advanced Practice Nurse] - (OFFICE WILL CALL PATIENT AT HOME WITH FOLLOW UP APPOINTMENT) Bhavna Colunga MD [Primary Care Provider] -
[2017-07-08] MEDS: *HR* Rivaroxaban 15 MG TABLET PO SCH (16:03)
--- NOTE | 2017-07-08 18:50 | Internal Med Progress Note ---
Date of Encounter: 07/08/17 Time of Encounter: 11:00 - Assessment and plan (1) Failure to thrive Current Visit: Yes Status: Acute Assessment and plan: Physical therapy consulted and appreciate recommendations for placement Qualifiers: Failure to thrive age range: in adult Qualified Code(s): R62.7 - Adult failure to thrive (2) Atrial fibrillation with RVR Current Visit: Yes Status: Chronic Assessment and plan: Started back on lopressor and cardize gtt waened off. Increased lopressor miguel 50 mg BID; on 75 mg BID at home. Continue Xarelto. (3) Acute exacerbation of CHF (congestive heart failure) Current Visit: Yes Status: Acute Assessment and plan: -Echocardiogram pending; continue beta deandre -Cardiology consulted and appreciate recommendations. Qualifiers: Congestive heart failure type: diastolic Qualified Code(s): I50.33 - Acute on chronic diastolic (congestive) heart failure (4) Bronchitis Current Visit: Yes Status: Acute Assessment and plan: Continue IV Levaquin (renally dosed). Sputum culture, resp PCR and urinary antigens pending - Subjective Interval history: No issues or complaints overnight - Constitutional Vitals: Temp Pulse Resp BP Pulse Ox 97.7 F 97 16 109/85 95 07/08/17 15:59 07/08/17 16:04 07/08/17 15:59 07/08/17 15:59 07/08/17 15:59 General appearance: Present: cooperative, A&O X 3, pleasant, no acute distress, underweight, answers questions appropriately - Respiratory Respiratory exam: Present: CTAB. Absent: accessory muscle use, rales, rhonchi, wheezes - Cardiovascular Cardiovascular exam: Present: RRR, +S1, +S2. Absent: diastolic murmur, gallop, rubs, systolic murmur Internal Medicine: Result - Labs CBC & Chem 7: 07/07/17 06:03 07/08/17 02:53 Labs: BMP 07/08/17 02:53 Sodium 143 Potassium 4.0 Chloride 104 Carbon Dioxide 28 BUN 24 H Creatinine 0.97 Glucose 113 H Calcium 9.1 Liver Function 07/08/17 Range/Units 02:53 Total Bilirubin 0.5 (0.3-1.0) mg/dL AST 23 (13-39) Units/L ALT 7 (7-52) Units/L Alkaline Phosphatase 65 (34-104) Units/L Albumin 3.4 L (3.5-5.7) g/dL Consult Discharge Plan - Plan Referrals: Kenney Donis CNP [Advanced Practice Nurse] - (OFFICE WILL CALL PATIENT AT HOME WITH FOLLOW UP APPOINTMENT) Bhavna Colunga MD [Primary Care Provider] -
[2017-07-08] MEDS: Levofloxacin 750 MG/150 ML 750 MG/150 ML BAG IVPB SCH (21:13)
[2017-07-09 03:55] LABS: Alanine Aminotransferase 8 Units/L (7-52); Albumin 3.5 g/dL (3.5-5.7); Albumin/Globulin Ratio 1.5 (1.1-2.2); Alkaline Phosphatase 66 Units/L (34-104); Aspartate Amino Transferase 23 Units/L (13-39); BUN/Creatinine Ratio 27 (6-26); Bilirubin,Total 0.5 mg/dL (0.3-1.0); Blood Urea Nitrogen 23 mg/dL (8-23); Calcium 9.3 mg/dL (8.6-10.3); Carbon Dioxide 28 mEq/L (23-29); Chloride 105 mEq/L (98-107); Globulin 2.4 g/dL (2.4-3.5); Glucose 125 mg/dL (70-105); Osmolality,Calculated 299 (280-300); Potassium 3.9 mEq/L (3.5-5.1); Sodium 142 mEq/L (136-145); Total Protein 5.9 g/dL (6.4-8.9); eGFR For African Americans > 60 (> 60); eGFR For Non-African Americans > 60 (> 60)
[2017-07-09] MEDS: Furosemide 40 MG TABLET PO SCH (07:43)
[2017-07-09] MEDS: Folic Acid 1 MG TABLET PO SCH (07:43)
[2017-07-09] MEDS: sulfaSALAzine 500 MG TABLET PO SCH ×2 (07:43→20:36)
--- NOTE | 2017-07-09 09:26 | Cardiology Progress Note ---
Date of Encounter: 07/09/17 Time of Encounter: 07:45 Assessment and Plan (1) Atrial fibrillation with RVR Current Visit: Yes Status: Chronic Per Cardiology: Known history of atrial fibrillation-- A. fib with RVR during stay suspect exacerbated by acute bronchitis and low magnesium. Started back on lopressor and cardize gtt waened off. HR currently 80-114 afib. Avg HR 100 over last 12 hours. Increase lopressor as tolerated. Increase to 75 mg BID. Noted to be on 75 mg BID at home. Regarding long-term anticoagulation, already on Xarelto. (2) Acute exacerbation of CHF (congestive heart failure) Current Visit: Yes Status: Acute Per Cardiology: Chest X-Ray 07/06/17 11:59 IMPRESSION: Overall improvement of congestive heart failure. Left basilar atelectasis likely related to elevation of the left hemidiaphragm. BNP only very mild elevation 209. Last echo 06/2016: LVEF 55-60%.Indeterminate diastolic function. Normal right ventricular structure and function. Moderately dilated left atrium. Severely dilated right atrium. Mild aortic regurgitation. Mild mitral regurgitation. Moderate tricuspid regurgitation. Moderate to severe pulmonary hypertension. Mild CHF on admit. Pedal edema noted. Continue oral lasix. WIll give one dose IV lasix today. Check limited TTE. Qualifiers: Congestive heart failure type: diastolic Qualified Code(s): I50.33 - Acute on chronic diastolic (congestive) heart failure Discussion w patient/family: The assessment and plan as outlined above was discussed with the patient and/or family members who expressed understanding and agreement. All questions were answered. Thank you for involving us in the care of your patient. Please call with any questions. Subjective Principal diagnosis: atrial fibrillation with RVR, mild CHF Interval history: Ms. Martínez continues to have atrial fibrillation with RVR. Reorts she is breathing better. Denies chest pain. Objective Vital Signs, Last 4 Hours Temp Pulse Resp BP Pulse Ox 07/09/17 07:46 111 07/09/17 07:27 97.5 F L 111 19 142/76 96 General: Conversant, No Apparent Distress HEENT: Atraumatic, Normocephaly, Mucus Membranes Moist Neck: No JVD, Normal carotid pulses Cardiac: Other (irregular) Lungs: Other (Respirations easy) Neuro: Alert and responsive, No focal deficits noted Abdomen: Soft, Non-Tender Skin: No rashes noted on visualized skin Musculoskeletal: No Chest Wall Tenderness Extremities: No Clubbing, No Cyanosis, No Edema, Normal Pulses Results 07/07/17 06:03 07/09/17 03:14 Lab Results 07/09/17 03:14 Sodium 142 Potassium 3.9 Chloride 105 Carbon Dioxide 28 BUN 23 Creatinine 0.84 Glucose 125 H Calcium 9.3 Total Bilirubin 0.5 AST 23 ALT 8 Alkaline Phosphatase 66 Consult Discharge Plan - Plan Referrals: Kenney Donis CNP [Advanced Practice Nurse] - (OFFICE WILL CALL PATIENT AT HOME WITH FOLLOW UP APPOINTMENT) Bhavna Colunga MD [Primary Care Provider] -
[2017-07-09] MEDS ORDERED: Furosemide 20 MG/2 ML VIAL IVP ONE (09:29)
[2017-07-09 10:44] LABS: Basophils % 0.2 %; Hematocrit 44.8 % (35.3-44.9); Hemoglobin 14.2 g/dL (11.5-15.4); Immature Granulocytes % 0.2 % (0-4); Lymphocytes # 0.6 K/mcL (0.6-4.6); Lymphocytes % 10.6 %; Mean Corpuscular HGB Conc 31.7 g/dL (31.6-35.5); Mean Corpuscular Hemoglobin 32.1 pg (28.0-33.3); Mean Corpuscular Volume 101.1 fL (83.0-100.0); Mean Platelet Volume 10.5 fL (9.4-12.4); Monocytes # 0.3 K/mcL (0.0-1.3); Monocytes % 4.9 %; Neutrophils # 4.9 K/mcL (1.6-8.9); Platelet Count 292 K/mcL (140-400); Red Blood Count 4.43 M/mcL (3.82-4.97); Red Cell Distribution Width 13.9 % (11.5-14.5); Segmented Neutrophils % 84.1 %
[2017-07-09] MEDS: *HR* Rivaroxaban 15 MG TABLET PO SCH (16:25)
--- NOTE | 2017-07-09 18:37 | Internal Med Progress Note ---
Date of Encounter: 07/09/17 Time of Encounter: 11:00 - Assessment and plan (1) Atrial fibrillation with RVR Current Visit: Yes Status: Chronic Assessment and plan: Patient's rate is controlled for atrial fibrillation on home dose of beta deandre Increased to her home dose of 75 mg BID. Continue Xarelto. Cardiology following and appreciate recommendations (2) Acute exacerbation of CHF (congestive heart failure) Current Visit: Yes Status: Acute Assessment and plan: -Patient reports that shortness of breath has improved since starting IV diuresis for acute on chronic systolic heart failure -Echocardiogram on 07/09/17 showed LVEF of 50% -Continue IV diuresis -Cardiology consulted and appreciate recommendations. Qualifiers: Congestive heart failure type: systolic Qualified Code(s): I50.23 - Acute on chronic systolic (congestive) heart failure (3) Bronchitis Current Visit: Yes Status: Acute Assessment and plan: -Discontinue IV Levaquin (renally dosed); low suspicion of bacterial bronchitis (4) Failure to thrive Current Visit: Yes Status: Acute Assessment and plan: Physical therapy consulted and appreciate recommendations for placement Qualifiers: Failure to thrive age range: in adult Qualified Code(s): R62.7 - Adult failure to thrive (5) DVT prophylaxis Current Visit: Yes Status: Acute Assessment and plan: On Xarelto - Subjective Interval history: Patient's rate is controlled for atrial fibrillation on home dose of beta deandre Also reports that shortness of breath has improved since starting IV diuresis for acute on chronic systolic heart failure Will discontinue IV antibiotics as low suspicion for bacterial bronchitis. - Constitutional Vitals: Temp Pulse Resp BP Pulse Ox 98.1 F 116 19 126/97 94 07/09/17 15:33 07/09/17 15:33 07/09/17 15:33 07/09/17 15:33 07/09/17 15:33 General appearance: Present: cooperative, A&O X 3, pleasant, no acute distress, underweight, answers questions appropriately - Respiratory Respiratory exam: Present: CTAB, rales, wheezes. Absent: accessory muscle use, rhonchi Additional comments: Bilateral crackles auscultated - Cardiovascular Cardiovascular exam: Present: irregular rhythm, +S1, +S2. Absent: diastolic murmur, gallop, rubs, systolic murmur Internal Medicine: Result - Labs CBC & Chem 7: 07/09/17 10:20 07/09/17 03:14 Labs: Short CBC 07/09/17 Range/Units 10:20 WBC 5.9 (4.3-11.1) K/mcL Hgb 14.2 (11.5-15.4) g/dL Hct 44.8 (35.3-44.9) % Plt Count 292 (140-400) K/mcL Neutrophils # 4.9 (1.6-8.9) K/mcL BMP 07/09/17 03:14 Sodium 142 Potassium 3.9 Chloride 105 Carbon Dioxide 28 BUN 23 Creatinine 0.84 Glucose 125 H Calcium 9.3 Liver Function 07/09/17 Range/Units 03:14 Total Bilirubin 0.5 (0.3-1.0) mg/dL AST 23 (13-39) Units/L ALT 8 (7-52) Units/L Alkaline Phosphatase 66 (34-104) Units/L Albumin 3.5 (3.5-5.7) g/dL - Impressions Impressions Echocardiogram Limited Views 07/08/17 12:57 Impressions: LVEF 50%. Left Ventricular Wall Motion: Rest Echo Findings All wall segments showed normal motion. Findings: ECG Findings * Atrial fibrillation. Left Atrium * Mildly dilated left atrium. Left Ventricle * LVEF 50%. Right Atrium * Mildly dilated right atrium. Consult Discharge Plan - Plan Referrals: Kenney Donis CNP [Advanced Practice Nurse] - (OFFICE WILL CALL PATIENT AT HOME WITH FOLLOW UP APPOINTMENT) Bhavna Colunga MD [Primary Care Provider] -
[2017-07-10 04:52] LABS: Alanine Aminotransferase 8 Units/L (7-52); Albumin 3.4 g/dL (3.5-5.7); Albumin/Globulin Ratio 1.5 (1.1-2.2); Alkaline Phosphatase 62 Units/L (34-104); Aspartate Amino Transferase 22 Units/L (13-39); BUN/Creatinine Ratio 27 (6-26); Bilirubin,Total 0.5 mg/dL (0.3-1.0); Blood Urea Nitrogen 23 mg/dL (8-23); Calcium 9.3 mg/dL (8.6-10.3); Carbon Dioxide 32 mEq/L (23-29); Chloride 106 mEq/L (98-107); Globulin 2.3 g/dL (2.4-3.5); Glucose 106 mg/dL (70-105); Osmolality,Calculated 302 (280-300); Potassium 3.5 mEq/L (3.5-5.1); Sodium 144 mEq/L (136-145); Total Protein 5.7 g/dL (6.4-8.9); eGFR For African Americans > 60 (> 60); eGFR For Non-African Americans > 60 (> 60)
[2017-07-10] MEDS: sulfaSALAzine 500 MG TABLET PO SCH ×2 (08:47→20:56)
[2017-07-10] MEDS: Folic Acid 1 MG TABLET PO SCH (08:47)
[2017-07-10] MEDS: Furosemide 40 MG TABLET PO SCH (08:48)
[2017-07-10 09:48] LABS: Basophils % 0.2 %; Hematocrit 50.4 % (35.3-44.9); Immature Granulocytes % 0.2 % (0-4); Lymphocytes # 1.3 K/mcL (0.6-4.6); Lymphocytes % 19.6 %; Mean Corpuscular HGB Conc 31.5 g/dL (31.6-35.5); Mean Corpuscular Hemoglobin 32.3 pg (28.0-33.3); Mean Corpuscular Volume 102.4 fL (83.0-100.0); Mean Platelet Volume 10.6 fL (9.4-12.4); Monocytes # 0.4 K/mcL (0.0-1.3); Monocytes % 5.3 %; Platelet Count 300 K/mcL (140-400); Red Blood Count 4.92 M/mcL (3.82-4.97); Red Cell Distribution Width 13.9 % (11.5-14.5); Segmented Neutrophils % 74.7 %
[2017-07-10 10:31] LABS: Hemoglobin 15.9 g/dL (11.5-15.4)
--- NOTE | 2017-07-10 12:01 | Cardiology Progress Note ---
Date of Encounter: 07/10/17 Time of Encounter: 11:59 Assessment and Plan (1) Atrial fibrillation with RVR Current Visit: Yes Status: Chronic Per Cardiology: Known history of atrial fibrillation-- A. fib with RVR during stay suspect exacerbated by acute bronchitis and low magnesium. Started back on lopressor and cardizem gtt discontinued. HR currently 80 afib. Avg HR 92 over last 12 hours. Continue lopressor 75 mg BID. Regarding long-term anticoagulation, already on Xarelto. Cardiology will sign off. Call with questions. Out-pt f/u in 2 weeks will be scheduled. (2) Acute exacerbation of CHF (congestive heart failure) Current Visit: Yes Status: Acute Per Cardiology: Chest X-Ray 07/06/17 11:59 IMPRESSION: Overall improvement of congestive heart failure. Left basilar atelectasis likely related to elevation of the left hemidiaphragm. BNP only very mild elevation 209. Last echo 06/2016: LVEF 55-60%.Indeterminate diastolic function. Normal right ventricular structure and function. Moderately dilated left atrium. Severely dilated right atrium. Mild aortic regurgitation. Mild mitral regurgitation. Moderate tricuspid regurgitation. Moderate to severe pulmonary hypertension. Mild CHF on admit. IV lasix given with improvement. Continue oral lasix. Low sodium diet and strict I&O. Currently euvolemic. TTE showed EF 50%, no WMA. No further cardiac testing. Qualifiers: Congestive heart failure type: systolic Qualified Code(s): I50.23 - Acute on chronic systolic (congestive) heart failure Discussion w patient/family: The assessment and plan as outlined above was discussed with the patient and/or family members who expressed understanding and agreement. All questions were answered. Thank you for involving us in the care of your patient. Please call with any questions. Subjective Principal diagnosis: atrial fibrillation with RVR, mild CHF Interval history: Ms. Martínez denies problems or concerns overnight. Objective Vital Signs, Last 4 Hours Temp Pulse Resp BP Pulse Ox 07/10/17 11:10 93 07/10/17 11:07 97.5 F L 85 16 107/77 95 07/10/17 08:26 88 07/10/17 08:09 88 07/10/17 08:03 97.8 F 112 20 119/90 95 General: Conversant, No Apparent Distress HEENT: Atraumatic, Normocephaly, Mucus Membranes Moist Neck: No JVD, Normal carotid pulses Cardiac: Other (irregular. ) Lungs: Normal Breath Sounds, No Wheeze, Rales, Rhonchi Neuro: Alert and responsive, No focal deficits noted Abdomen: Soft, Non-Tender Skin: No rashes noted on visualized skin Musculoskeletal: No Chest Wall Tenderness Extremities: No Clubbing, No Cyanosis, No Edema, Normal Pulses Results 07/10/17 09:01 07/10/17 03:55 Lab Results 07/10/17 07/10/17 03:55 09:01 WBC 6.6 Hgb 15.9 H D Hct 50.4 H Plt Count 300 Sodium 144 Potassium 3.5 Chloride 106 Carbon Dioxide 32 H BUN 23 Creatinine 0.86 Glucose 106 H Calcium 9.3 Total Bilirubin 0.5 AST 22 ALT 8 Alkaline Phosphatase 62 Consult Discharge Plan - Plan Referrals: Kenney Donis CNP [Advanced Practice Nurse] - (OFFICE WILL CALL PATIENT AT HOME WITH FOLLOW UP APPOINTMENT) Bhavna Colunga MD [Primary Care Provider] -
[2017-07-10] MEDS: *HR* Rivaroxaban 15 MG TABLET PO SCH (16:13)
[2017-07-10] MEDS ORDERED: *HR* Rivaroxaban 10 MG TABLET PO SCH (17:00)
--- NOTE | 2017-07-10 17:36 | Internal Med Progress Note ---
Date of Encounter: 07/10/17 Time of Encounter: 11:00 - Assessment and plan (1) Atrial fibrillation with RVR Current Visit: Yes Status: Chronic Assessment and plan: Patient's rate is controlled for atrial fibrillation on home dose of beta deandre Increased to her home dose of 75 mg BID. Continue Xarelto. Cardiology following and appreciate recommendations (2) Acute exacerbation of CHF (congestive heart failure) Current Visit: Yes Status: Acute Assessment and plan: -Patient reports that shortness of breath has improved since starting IV diuresis for acute on chronic systolic heart failure -Echocardiogram on 07/09/17 showed LVEF of 50% -Cardiology consulted with recommendations to continue oral Lasix Qualifiers: Congestive heart failure type: systolic Qualified Code(s): I50.23 - Acute on chronic systolic (congestive) heart failure (3) Bronchitis Current Visit: Yes Status: Acute Assessment and plan: -Will restart IV Levaquin (renally dosed)due to suspicion of bacterial bronchitis (4) Failure to thrive Current Visit: Yes Status: Acute Assessment and plan: Physical therapy consulted and appreciate recommendations for placement Qualifiers: Failure to thrive age range: in adult Qualified Code(s): R62.7 - Adult failure to thrive (5) DVT prophylaxis Current Visit: Yes Status: Acute - Subjective Interval history: Patient's rate is controlled for atrial fibrillation on home dose of beta deandre Also reports that shortness of breath has improved since starting IV diuresis for acute on chronic systolic heart failure Will restart IV antibiotics for suspicion of bacterial bronchitis. - Constitutional Vitals: Temp Pulse Resp BP Pulse Ox 97.6 F 96 16 116/79 92 07/10/17 16:17 07/10/17 16:20 07/10/17 16:17 07/10/17 16:17 07/10/17 16:17 General appearance: Present: cooperative, A&O X 3, pleasant, no acute distress, underweight, answers questions appropriately - Respiratory Respiratory exam: Present: wheezes - Cardiovascular Cardiovascular exam: Present: RRR, +S1, +S2. Absent: diastolic murmur, gallop, rubs, systolic murmur Internal Medicine: Result - Labs CBC & Chem 7: 07/10/17 09:01 07/10/17 03:55 Labs: Short CBC 07/10/17 Range/Units 09:01 WBC 6.6 (4.3-11.1) K/mcL Hgb 15.9 H D (11.5-15.4) g/dL Hct 50.4 H (35.3-44.9) % Plt Count 300 (140-400) K/mcL Neutrophils # 5.0 (1.6-8.9) K/mcL BMP 07/10/17 03:55 Sodium 144 Potassium 3.5 Chloride 106 Carbon Dioxide 32 H BUN 23 Creatinine 0.86 Glucose 106 H Calcium 9.3 Liver Function 07/10/17 Range/Units 03:55 Total Bilirubin 0.5 (0.3-1.0) mg/dL AST 22 (13-39) Units/L ALT 8 (7-52) Units/L Alkaline Phosphatase 62 (34-104) Units/L Albumin 3.4 L (3.5-5.7) g/dL Consult Discharge Plan - Plan Referrals: Kenney Donis CNP [Advanced Practice Nurse] - (OFFICE WILL CALL PATIENT AT HOME WITH FOLLOW UP APPOINTMENT) Bhavna Colunga MD [Primary Care Provider] -
[2017-07-11 06:24] LABS: Alanine Aminotransferase 10 Units/L (7-52); Albumin 3.3 g/dL (3.5-5.7); Albumin/Globulin Ratio 1.3 (1.1-2.2); Alkaline Phosphatase 64 Units/L (34-104); Aspartate Amino Transferase 24 Units/L (13-39); BUN/Creatinine Ratio 29 (6-26); Bilirubin,Total 0.5 mg/dL (0.3-1.0); Blood Urea Nitrogen 24 mg/dL (8-23); Calcium 9.1 mg/dL (8.6-10.3); Carbon Dioxide 31 mEq/L (23-29); Chloride 105 mEq/L (98-107); Globulin 2.5 g/dL (2.4-3.5); Glucose 107 mg/dL (70-105); Osmolality,Calculated 305 (280-300); Potassium 3.5 mEq/L (3.5-5.1); Sodium 145 mEq/L (136-145); Total Protein 5.8 g/dL (6.4-8.9); eGFR For African Americans > 60 (> 60); eGFR For Non-African Americans > 60 (> 60)
[2017-07-11] MEDS: sulfaSALAzine 500 MG TABLET PO SCH (07:30)
[2017-07-11] MEDS: Folic Acid 1 MG TABLET PO SCH (07:31)
[2017-07-11] MEDS: Furosemide 40 MG TABLET PO SCH (07:31)
--- NOTE | 2017-07-11 10:21 | Physician Discharge Referral ---
Home Health/Hosp Referral Info Transfer to: Home Health Provider in Charge Post Discharge: PCP - Respiratory Orders Smoking Cessation: Smoking cessation has been advised. For more information, call the [place] Tobacco Quit Line at 8-837-VOVV-NOW. - Services Needed Following services are medically necessary services: Nursing, Physical Therapy, Occupational Therapy - Transfer Medications Home Medications: Simvastatin [Zocor] 40 mg PO HS 07/25/15 [History] Folic Acid 1 mg PO DAILY 07/06/17 [History] Furosemide [Lasix] 40 mg PO DAILY 07/06/17 [History] Hydroxychloroquine [Plaquenuil] 300 mg PO DAILY 07/06/17 [History] Methotrexate [Otrexup] 12.5 mg PO QWEEK 07/06/17 [History] Omeprazole [PriLOSEC] 40 mg PO DAILY 07/06/17 [History] Oxycodone HCl [Oxycodone HCl] 5 mg PO TID PRN 07/06/17 [History] Potassium Chloride [K-Tab ER] 10 meq PO DAILY 07/06/17 [History] Rivaroxaban [Xarelto] 15 mg PO DAILY 07/06/17 [History] sulfaSALAzine [Sulfasalazine] 500 mg PO BID 07/06/17 [History] Allergies/Adverse Reactions: 3 Allergy/AdvReac Type Severity Reaction Status Date / Time No Known Allergies Allergy Verified 07/06/17 11:28 Certification: Further, I certify that my clinical findings support that this patient is homebound (i.e. absences from home require considerable and taxing effort and are for medical reasons or anabaptism services or infrequently or short duration when for other reasons) because: Homebound Reason: Patient requires assistance of a person or device to safely leave home Attestation: My signature below is to certify that this patient is under my care and that I, or nurse practitioner, or a physician's diagnostic assistant working with me, has a face-to -face encounter with this patient.
--- NOTE | 2017-07-11 10:25 | Discharge Summary ---
<Carolina Hinkle - Last Filed: 07/11/17 16:47> Date of Encounter: 07/11/17 Time of Encounter: 15:00 - Discharge Diagnosis (1) Bronchitis Priority: Primary Status: Acute (2) Atrial fibrillation with RVR Priority: Secondary Status: Chronic (3) Acute exacerbation of CHF (congestive heart failure) Priority: Secondary Status: Acute Qualifiers: Congestive heart failure type: systolic Qualified Code(s): I50.23 - Acute on chronic systolic (congestive) heart failure - Discharge Medications Prescriptions: Albuterol Sulfate [Albuterol Inhaler] 2 puff IH Q6HR #1 hfa.aer.ad levoFLOXacin [Levaquin] 500 mg PO DAILY #5 tablet Metoprolol [Lopressor] 75 mg PO BID #180 tablet Home Medications: Simvastatin [Zocor] 40 mg PO HS 07/25/15 [History] Folic Acid 1 mg PO DAILY 07/06/17 [History] Furosemide [Lasix] 40 mg PO DAILY 07/06/17 [History] Hydroxychloroquine [Plaquenuil] 300 mg PO DAILY 07/06/17 [History] Methotrexate [Otrexup] 12.5 mg PO QWEEK 07/06/17 [History] Omeprazole [PriLOSEC] 40 mg PO DAILY 07/06/17 [History] Oxycodone HCl 5 mg PO TID PRN 07/06/17 [History] Potassium Chloride [K-Tab ER] 10 meq PO DAILY 07/06/17 [History] Rivaroxaban [Xarelto] 15 mg PO DAILY 07/06/17 [History] sulfaSALAzine [Sulfasalazine] 500 mg PO BID 07/06/17 [History] Albuterol Sulfate [Albuterol Inhaler] 2 puff IH Q6HR #1 hfa.aer.ad 07/11/17 [Rx] Metoprolol [Lopressor] 75 mg PO BID #180 tablet 07/11/17 [Rx] levoFLOXacin [Levaquin] 500 mg PO DAILY #5 tablet 07/11/17 [Rx] Allergies/Adverse Reactions: 3 Allergy/AdvReac Type Severity Reaction Status Date / Time No Known Allergies Allergy Verified 07/06/17 11:28 Procedures/tests Complete & Pending: Procedures Performed prior 72 hours Category Date Time Status EV limited echocardiogram Routine Y 07/08/17 12:57 Completed Date of admission: 07/06/17 19:31 Primary care physician: Bhavna Colunga MD Consults: 07/07/17 06:54 Consult to Cardiology [CONS] Stat Comment: Consulting Provider: Cardiology [place] Reason for Consult: A Fib RVR, not controlled although on cardizem drop and at rate of 17.5 mg/hr Call Completed: Yes Discharging clinician: Carolina Hinkle Anticipated date of discharge: 07/11/17 - Patient Status Disposition: Home Health Service Condition: Good Functional capacity at discharge: uses cane/walker Overall status at discharge: patient is progressing back to baseline - Discharge Instructions Instructions: Metoprolol (By mouth), Levofloxacin (By mouth), Ipratropium/ Albuterol (By breathing), Heart Failure (DC), Atrial Fibrillation (DC) Follow Up With: Kenney Donis CNP [Advanced Practice Nurse] - (OFFICE WILL CALL PATIENT AT HOME WITH FOLLOW UP APPOINTMENT) Bhavna Colunga MD [Primary Care Provider] - 07/17/17 2:50 pm (Within a week) Additional Instructions: Please take prescribed levofloxacin 500 mg daily by mouth for five more days to finish the 7-day course of antibiotic treatment for bronchitis. Please take prescribed metoprolol tartrate (Lopressor) 75 mg by mouth twice a day for rate control of atrial fibrillation. You can use prescribe albuterol inhaler 2 puffs every 6 hours for shortness of breath. You can use prescribe home oxygen (2L at rest and 4L on exertion). Please follow up with your primary care physician Dr. Colunga within a week regarding your hospitalization. Please follow up with Kenney Donis CNP for [place] [facility] regarding congestive heart failure. The cardiology clinic will call you to make an appointment. - Diet and Activity Activity: as per physical therapy, increase activity as tolerated Diet: advance to your usual diet Hospital course: Ms. Martínez is a 87 year old female with PMH of chronic atrial fibrillation on Xarelto, CHF, HLD, HTN and rheumatoid arthritis who presented with 6-day history of generalized weakness with increased cough despite of being treated with 5-day course of azithromycin outpatiently. In ED, patient was noted to have A-fib RVR at rate of 130s along with elevated SCr at 1.20 (baseline at ~0.8 ). CXR in ED found no new focal consolidation, pleural effusion or overt pulmonary edema. Patient was admitted on 07/06/17 for bronchitis, acute exacerbation of CHF, A-fib RVR and ANAY. Patient was started on levofloxacin, furosemide and Cardizem drip. Cardiology was consulted for acute exacerbation of CHF and A-fib RVR. Cardizem drip was discontinued on 07/07/17 as patient's heart rate was better controlled by metoprolol. Echo on 07/09/17 found LVEF 50% compared to prior echo on 06/03/16 showed LVEF 55-60% with indeterminate diastolic function. Cardiology recommends medical management with oral Lasix, low sodium diet and strict I/O and no further cardiac test is indicated. Patient 's heart rate control and respiratory status continued to improve throughout her hospital stay. On 07/11/17, patient has heart rate controlled at 90s most of time. Patient reports breathing and cough significantly improve and feels she is ready to go home. PT/OT recommend home health. Patient had oxygen qualification test ambulation and patient is qualified for home oxygen 2L at rest and 4L on exertion. Case was discussed with attending physician Dr. Odell. Given patient improves clinically and remains hemodynamically stable, patient can be discharged home with home health. Patient will take prescribed levofloxacin 500 mg daily by mouth for five more days to finish the 7 -day course of antibiotic treatment for bronchitis. Patient will also need to take prescribed metoprolol tartrate (Lopressor) 75 mg by mouth twice a day for rate control of atrial fibrillation. Patient can use prescribe home oxygen (2L at rest and 4L on exertion) along with albuterol inhaler 2 puffs every 6 hours for shortness of breath. Patient will need follow-up with your primary care physician Dr. Colunga within a week regarding her hospitalization and follow-up with Kenney Donis CNP for [place] [facility] regarding congestive heart failure. The cardiology clinic will call patient to make an appointment. - Time Spent with Patient Total time spent providing and/or coordinating discharge services: Greater than 30 minutes (45 minutes) - Constitutional Vitals: Temp Pulse Resp BP Pulse Ox 97.6 F 106 18 107/84 97 07/11/17 08:03 07/11/17 08:03 07/11/17 08:03 07/11/17 08:03 07/11/17 08:03 General appearance: Present: cooperative, A&O X 3, pleasant, no acute distress, underweight, answers questions appropriately - Head Head exam: Present: normal inspection - Eye Eye exam: Present: EOMI, conjuntiva pink, sclera anicteric - Neck Neck exam general surgery: Present: normal inspection, supple, trachea midline - Respiratory Respiratory exam: Present: CTAB. Absent: accessory muscle use - Cardiovascular Cardiovascular exam: Present: irregular rhythm (at rate of 80s), +S1, +S2 - GI/Abdominal GI/Abdominal exam: Present: normal bowel sounds, soft, no peritoneal signs. Absent: tenderness - Extremities Exam Extremities exam: Present: pedal edema (Mild BLE edema), warm. Absent: cyanotic - Neurological Exam Neurological exam: Present: alert. Absent: facial droop, speech deficit - Skin Skin exam: Present: dry, warm <ThallaNelly rogers - Last Filed: 07/11/17 17:47> Date of Encounter: 07/11/17 Date of admission: 07/06/17 19:31 Primary care physician: Bhavna Colunga MD Consults: 07/07/17 06:54 Consult to Cardiology [CONS] Stat Comment: Consulting Provider: Cardiology [place] Reason for Consult: A Fib RVR, not controlled although on cardizem drop and at rate of 17.5 mg/hr Call Completed: Yes Hospital course: Ms. Martínez is a 87 year old female - Time Spent with Patient Total time spent providing and/or coordinating discharge services: - Constitutional Vitals: Temp Pulse Resp BP Pulse Ox 97.6 F 96 18 119/90 95 07/11/17 16:27 07/11/17 16:27 07/11/17 16:47 07/11/17 16:27 07/11/17 16:47 - Attending Attestation I examined this patient and my medical decision-making was reviewed with the Resident Physician Dr. Hinkle. I agree with the documented findings, disposition and treatment plan as described except to the extent set forth below. This is an an 87 y/o F admitted here for acute CHF exacerbation and hypoxic resp failure. She was give IV diuretics and frequent breathing treatments. Her symptoms started improving slowly, currently breathing comfortably on 2 lit O2 at resting. However with minimal exertion her PSo2 dropped down to 80's. She may not do much ambulation at home. At this point I asked the family to use 4 lit O2 with ambulation and 2 lit o2 at rest. Will d/c her home with home health services today in safe condition. Gen: A, A, O X 3 Chest: Diminished BS b/l no wheezing, no crackles, rales
--- NOTE | 2017-07-11 14:53 | Internal Med Progress Note ---
Date of Encounter: 07/11/17 Time of Encounter: 09:00 - Assessment and plan (1) Acute and chronic respiratory failure Current Visit: Yes Status: Acute Assessment and plan: - Patient maintains acceptable oxygenation on room air at rest but while on ambulation, patient desaturated to 70s on room air and to 80s on 4L NC. Patient was using 2L oxygen at home only at night. - Most likely secondary to bronchitis in the setting of CHF. - Start levofloxacin for suspected bacterial bronchitis. - Continue diuresis for CHF. - Start bronchodilator and incentive spirometry. - Continue supplemental oxygen with close monitoring. Qualifiers: Respiratory failure complication: hypoxia Qualified Code(s): J96.21 - Acute and chronic respiratory failure with hypoxia (2) Bronchitis Current Visit: Yes Status: Acute Assessment and plan: - CXR found no new focal consolidation. - Patient received IV levofloxacin on 07/06/17 and 07/08/17. - Start PO levofloxacin for 5 more days to finish 7-day course for suspected bacterial bronchitis (3) Acute exacerbation of CHF (congestive heart failure) Current Visit: Yes Status: Acute Assessment and plan: - Mild CHF exacerbation on initial presentation - Echo on 07/09/17 found LVEF 50%. - Prior echo on 06/03/16 showed LVEF 55-60% with indeterminate diastolic function. - No further cardiac test is indicated per cardiology. - Continue medical management with oral Lasix, low sodium diet and strict I/O as recommended per cardiology. Qualifiers: Congestive heart failure type: systolic Qualified Code(s): I50.23 - Acute on chronic systolic (congestive) heart failure (4) Atrial fibrillation with RVR Current Visit: Yes Status: Chronic Assessment and plan: - Currently rate-controlled. Continue Lopressor 75 mg PO BID. - Continue Xarelto for anticoagulation. (5) DVT prophylaxis Current Visit: Yes Status: Acute Assessment and plan: - Continue Xarelto - Subjective Interval history: Patient was seen and examined this morning. Patient reports breathing and cough improved compared to yesterday. Patient denies chest pain, palpitation, fever, chills, abdominal pain. Patient thinks she is ready to go home. - Constitutional Vitals: Temp Pulse Resp BP Pulse Ox 97.7 F 91 16 97/65 95 07/11/17 10:50 07/11/17 10:50 07/11/17 10:50 07/11/17 10:50 07/11/17 10:50 General appearance: Present: cooperative, A&O X 3, pleasant, no acute distress, underweight, answers questions appropriately - Head Head exam: Present: normal inspection - Eye Eye exam: Present: EOMI, conjuntiva pink, sclera anicteric - Neck Neck exam general surgery: Present: normal inspection, supple, trachea midline - Respiratory Respiratory exam: Present: wheezes. Absent: accessory muscle use - Cardiovascular Cardiovascular exam: Present: tachycardia - GI/Abdominal GI/Abdominal exam: Present: normal bowel sounds, soft, no peritoneal signs. Absent: tenderness - Extremities Exam Extremities exam: Present: pedal edema (Mild), warm. Absent: cyanotic - Neurological Exam Neurological exam: Present: alert. Absent: facial droop, speech deficit - Skin Skin exam: Present: dry, warm Internal Medicine: Result - Labs CBC & Chem 7: 07/10/17 09:01 07/11/17 05:38 Labs: BMP 07/11/17 05:38 Sodium 145 Potassium 3.5 Chloride 105 Carbon Dioxide 31 H BUN 24 H Creatinine 0.84 Glucose 107 H Calcium 9.1 Liver Function 07/11/17 Range/Units 05:38 Total Bilirubin 0.5 (0.3-1.0) mg/dL AST 24 (13-39) Units/L ALT 10 (7-52) Units/L Alkaline Phosphatase 64 (34-104) Units/L Albumin 3.3 L (3.5-5.7) g/dL Consult Discharge Plan - Plan Instructions: Heart Failure (DC), Atrial Fibrillation (DC) Additional Instructions: Please take prescribed levofloxacin 750 mg daily by mouth for two more days to finish the course of antibiotic treatment for bronchitis. Please take prescribed metoprolol tartrate (Lopressor) 75 mg by mouth twice a day for rate control of atrial fibrillation. You can use prescribe albuterol inhaler 2 puffs every 6 hours for shortness of breath. Please follow up with your primary care physician Dr. Colunga within a week regarding your hospitalization. Please follow up with Kenney Donis CNP for [place] cardiology regarding congestive heart failure. The cardiology clinic will call you to make an appointment. Referrals: Kenney Donis CNP [Advanced Practice Nurse] - (OFFICE WILL CALL PATIENT AT HOME WITH FOLLOW UP APPOINTMENT) Bhavna Colunga MD [Primary Care Provider] - 07/17/17 2:50 pm (Within a week) Prescriptions: Albuterol Sulfate [Albuterol Inhaler] 2 puff IH Q6HR #1 hfa.aer.ad levoFLOXacin [Levofloxacin] 750 mg PO DAILY #2 tablet Metoprolol [Lopressor] 75 mg PO BID #180 tablet
[2017-07-11] MEDS ORDERED: levoFLOXacin 500 MG TABLET PO SCH (15:45)
[2017-07-11] MEDS ORDERED: Ipratropium/Albuterol Neb 3 ML IH SCH (16:15)
[2017-07-11 16:31] VITALS: BP 119/90
[2017-07-11] MEDS: *HR* Rivaroxaban 15 MG TABLET PO SCH (17:27)
== END 2017-07-11 18:45 | disposition home health service (06) | DRG 291 ==
LOC: EMEROO 11:10 → 3BNU 11:10 → SUATTDRO 19:31 → 2NNU 07-07 10:42
PROVIDERS: ADMIT Pediatrics; ATTEND Hospitalist

== ENCOUNTER 2018-08-08 12:42 | Observation (INO) ==
[2018-08-08] MEDS ORDERED: Ipratropium/Albuterol Neb 3 ML IH ONE ×2 (13:01→14:11)
[2018-08-08 14:01] LABS: Basophils % 0.6 %; Hematocrit 44.5 % (35.3-44.9); Hemoglobin 14.7 g/dL (11.5-15.4); Immature Granulocytes % 0.2 % (0-4); Lymphocytes # 0.3 K/mcL (0.6-4.6); Lymphocytes % 6.4 %; Mean Corpuscular Volume 96.9 fL (83.0-100.0); Mean Platelet Volume 9.9 fL (9.4-12.4); Monocytes # 0.4 K/mcL (0.0-1.3); Monocytes % 7.2 %; Neutrophils # 4.4 K/mcL (1.6-8.9); Platelet Count 193 K/mcL (140-400); Red Blood Count 4.59 M/mcL (3.82-4.97); Red Cell Distribution Width 14.3 % (11.5-14.5); Segmented Neutrophils % 85.6 %
--- NOTE | 2018-08-08 14:15 | Emergency Department Note ---
Disposition Clinical Impression: Acute dyspnea Disposition: Admitted As Inpatient Referrals: Bhavna Colunga MD [Primary Care Provider] - General Adult HPI - General Chief complaint: ED Shortness of Breath/Dyspnea Stated complaint: Pnuemonia Time Seen by Provider: 08/08/18 12:54 Source: patient, family Limitations: no limitations Nursing Notes Reviewed: Yes Vital Signs Reviewed: Yes - History of Present Illness HPI Narrative: Attestation note ED attending note I examined this patient and my medical decision-making was reviewed with the emergency medicine resident Dr. Darwin Marin. I agree with the documented findings, disposition and treatment plan as described except to the extent set forth below. Briefly: 88-year-old female private family about a week of increasing cough sputum feeling poorly getting weaker see a PCP yesterday no imaging diagnosed with "pneumonia" last on Levaquin sent home she had a fever last night family's concern about fever and weakness here for further evaluation patient has rhonchi bilaterally no rales minimal pedal edema EKG shows no acute ischemic changes chest x-ray radiology as no acute process. Vitals note she has beginning of what appears to be a fever at 99.9 22 tachycardic 109 systolic of 119 might be low for her. Patient will get a d-dimer to exclude the possibility of pulmonary embolism. If positive she will go to CT enterography the chest. Either way patient is can be admitted patient will get a dose of IV antibiotics disposition pending, provided 45 minutes critical care service this patient Pain Scale: 0 - Related Data Home Medications Medication Instructions Recorded Confirmed Simvastatin [Zocor] 40 mg PO HS 07/25/15 07/06/17 Folic Acid 1 mg PO DAILY 07/06/17 07/06/17 Furosemide [Lasix] 40 mg PO DAILY 07/06/17 07/06/17 Hydroxychloroquine [Plaquenuil] 300 mg PO DAILY 07/06/17 07/06/17 Methotrexate [Otrexup] 12.5 mg PO QWEEK 07/06/17 07/06/17 Omeprazole [PriLOSEC] 40 mg PO DAILY 07/06/17 07/06/17 Oxycodone HCl 5 mg PO TID PRN 07/06/17 07/06/17 Potassium Chloride [K-Tab ER] 10 meq PO DAILY 07/06/17 07/06/17 Rivaroxaban [Xarelto] 15 mg PO DAILY 07/06/17 07/06/17 sulfaSALAzine [Sulfasalazine] 500 mg PO BID 07/06/17 07/06/17 Previous Rx's Medication Instructions Recorded Albuterol Sulfate [Albuterol 2 puff IH Q6HR #1 hfa.aer.ad 07/11/17 Inhaler] Metoprolol [Lopressor] 75 mg PO BID #180 tablet 07/11/17 levoFLOXacin [Levaquin] 500 mg PO DAILY #5 tablet 07/11/17 Allergies Allergy/AdvReac Type Severity Reaction Status Date / Time No Known Allergies Allergy Verified 07/06/17 11:28 Past Medical History - Past Medical History Medical history: Reports: atrial fibrillation, CHF, hyperlipidemia, hypertension , RA Surgical history: Reports: hip replacement, knee replacement Psychiatric history: Reports: no psych history 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: no 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 history - Social History Smoking Status: Never smoker Smokeless Tobacco Status: No Alcohol use: Reports: none Drug use: Reports: none Physical Exam - General Limitations: no limitations General appearance: alert, in no apparent distress Course Vital Signs Temperature 99.9 F H 08/08/18 12:43 Pulse Rate 109 08/08/18 12:43 Respiratory Rate 22 08/08/18 12:43 Blood Pressure 119/82 08/08/18 12:43 O2 Sat by Pulse Oximetry 91 08/08/18 12:43 Temperature 99.9 F H 08/08/18 12:43 Pulse Rate 100 08/08/18 13:01 Respiratory Rate 20 08/08/18 13:01 Blood Pressure 127/79 08/08/18 13:01 O2 Sat by Pulse Oximetry 93 08/08/18 13:01 Oxygen Delivery Oxygen Delivery Room Air Medical Decision Making - Lab Data Result diagrams: 08/08/18 13:37 Lab Results 08/08/18 Range/Units 13:37 WBC 5.1 (4.3-11.1) K/mcL RBC 4.59 (3.82-4.97) M/mcL Hgb 14.7 (11.5-15.4) g/dL Hct 44.5 (35.3-44.9) % MCV 96.9 (83.0-100.0) fL MCH 32.0 (28.0-33.3) pg MCHC 33.0 (31.6-35.5) g/dL RDW 14.3 (11.5-14.5) % Plt Count 193 (140-400) K/mcL MPV 9.9 (9.4-12.4) fL Immature Gran % 0.2 (0-4) % Seg Neutrophils % 85.6 % Lymphocytes % 6.4 % Monocytes % 7.2 % Eosinophils % 0.0 % Basophils % 0.6 % Neutrophils # 4.4 (1.6-8.9) K/mcL Lymphocytes # 0.3 L (0.6-4.6) K/mcL Monocytes # 0.4 (0.0-1.3) K/mcL Eosinophils # 0.0 (0.0-0.6) K/mcL Basophils # 0.0 (0.0-0.2) K/mcL
--- NOTE | 2018-08-08 14:16 | Emergency Department Note ---
Disposition Clinical Impression: Acute dyspnea Disposition: Admitted As Inpatient Referrals: Bhavna oClunga MD [Primary Care Provider] - Forms: ED Satisfaction Letter SOB HPI - General Chief Complaint: ED Shortness of Breath/Dyspnea Stated Complaint: Pnuemonia Time Seen by Provider: 08/08/18 12:54 Source: patient, family Mode of arrival: ambulatory Limitations: no limitations Nursing Notes Reviewed: Yes Vital Signs Reviewed: Yes - History of Present Illness Patient's 88-year-old female presenting to [facility] ED for a 5 day history of worsening dyspnea, cough, and progressive weakness. Upon initial examination patient sitting upright in hospital such is awake, alert, she appears to be pleasantly confused, patient's son and daughter are in room acting as co-historians. The patient's son states patient has had fever/chills over the past 5 days as well as worsening dyspnea and difficulty breathing. He notes that she has become hypoxic into the 80s and 90s and is concerned for her continued care at home in this condition. In addition to the symptoms mentioned above, patient admits to some nausea and difficulty with ambulation. Patient denies headache, vision change, tinnitus, new neck or back pain, chest pain, abdominal pain/nausea/vomiting, paresthesias in her extremities. Pt Subjective Complaint: shortness of breath, cough Onset (ago): day(s) Associated symptoms: Reports: fever, cough, wheezing, sputum production, nausea/vomiting Cough present: Yes Cough Description: Voluntary Cough Frequency: Intermittent Sputum production: Yes Sputum Amount: Moderate Sputum Color: Yellow - Related Data Home Medications Medication Instructions Recorded Confirmed Simvastatin [Zocor] 40 mg PO HS 07/25/15 07/06/17 Folic Acid 1 mg PO DAILY 07/06/17 07/06/17 Furosemide [Lasix] 40 mg PO DAILY 07/06/17 07/06/17 Hydroxychloroquine [Plaquenuil] 300 mg PO DAILY 07/06/17 07/06/17 Methotrexate [Otrexup] 12.5 mg PO QWEEK 07/06/17 07/06/17 Omeprazole [PriLOSEC] 40 mg PO DAILY 07/06/17 07/06/17 Oxycodone HCl 5 mg PO TID PRN 07/06/17 07/06/17 Potassium Chloride [K-Tab ER] 10 meq PO DAILY 07/06/17 07/06/17 Rivaroxaban [Xarelto] 15 mg PO DAILY 07/06/17 07/06/17 sulfaSALAzine [Sulfasalazine] 500 mg PO BID 07/06/17 07/06/17 Previous Rx's Medication Instructions Recorded Albuterol Sulfate [Albuterol 2 puff IH Q6HR #1 hfa.aer.ad 07/11/17 Inhaler] Metoprolol [Lopressor] 75 mg PO BID #180 tablet 07/11/17 levoFLOXacin [Levaquin] 500 mg PO DAILY #5 tablet 07/11/17 Allergies Allergy/AdvReac Type Severity Reaction Status Date / Time No Known Allergies Allergy Verified 07/06/17 11:28 All systems ED: reviewed and negative except as stated. Review of Systems: As Per HPI Past Medical History - Past Medical History Attestation: Yes The following information was validated with the patient. 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 Absent: scleral icterus - Neck Neck exam: Present: normal inspection, trachea midline - Chest Chest inspection: Present: normal inspection, symmetric chest wall rise - Respiratory Respiratory exam: Present: wheezes - Expanded Respiratory Exam Location: wheezes: Left, Right, Upper, rhonchi: Right, Lower - Cardiovascular Cardiovascular exam: Present: regular rate, irregular rhythm, normal heart sounds, +S1, +S2. Absent: systolic murmur, diastolic murmur, JVD, +S3, +S4 - Abdominal Exam Abdominal exam: Present: soft, Non-Tender, normal bowel sounds. Absent: distention, guarding, rebound, rigidity - Extremities Exam Extremities exam: Present: pedal edema (There is mild nonpitting edema in bilateral lower extremities) - Neurological Exam Neurological exam: Present: alert - Psychiatric Psychiatric exam: Present: normal affect, normal mood - Skin Skin exam: Present: warm, dry, intact, normal color. Absent: cyanosis, diaphoresis Course Course Narrative: Patient presentation, review systems and physical exam are concerning for pneumonia, versus COPD or PE. We will perform chest x-ray, d-dimer to further investigate. Troponin EKG to assess for potential cardio pathology We will give patient a DuoNeb's management her symptoms. - Reevaluation(s) Reevaluation #1: Patient chest x-ray read as negative for acute pathology Patient meets sepsis criteria and currently but has not been given 30 mL/kg flui d or antibodies this time due to negative chest x-ray Patient will be given 500 mL normal saline Patient was admitted to hospitalist medicine service for management of weakness and dyspnea (likely COPD versus bronchitis) Patient verbalizes understanding and agreement with this plan. Patient is hemodynamically stable time of admission. Time: 14:53 Vital Signs Temperature 99.9 F H 08/08/18 12:43 Pulse Rate 109 08/08/18 12:43 Respiratory Rate 22 08/08/18 12:43 Blood Pressure 119/82 08/08/18 12:43 O2 Sat by Pulse Oximetry 91 08/08/18 12:43 Temperature 99.9 F H 08/08/18 12:43 Pulse Rate 111 08/08/18 15:56 Respiratory Rate 18 08/08/18 15:56 Blood Pressure 127/79 08/08/18 13:01 O2 Sat by Pulse Oximetry 100 08/08/18 15:56 Oxygen Delivery Oxygen Delivery Nasal Cannula Shortness of Breath/Dyspnea - Lab Data Lab results reviewed: Yes I reviewed the patient's lab results. Result diagrams: 08/08/18 13:37 08/08/18 13:37 Lab Results 08/08/18 08/08/18 08/08/18 Range/Units 13:37 13:37 13:37 WBC 5.1 (4.3-11.1) K/mcL RBC 4.59 (3.82-4.97) M/mcL Hgb 14.7 (11.5-15.4) g/dL Hct 44.5 (35.3-44.9) % MCV 96.9 (83.0-100.0) fL MCH 32.0 (28.0-33.3) pg MCHC 33.0 (31.6-35.5) g/dL RDW 14.3 (11.5-14.5) % Plt Count 193 (140-400) K/mcL MPV 9.9 (9.4-12.4) fL Immature Gran % 0.2 (0-4) % Seg Neutrophils % 85.6 % Lymphocytes % 6.4 % Monocytes % 7.2 % Eosinophils % 0.0 % Basophils % 0.6 % Neutrophils # 4.4 (1.6-8.9) K/mcL Lymphocytes # 0.3 L (0.6-4.6) K/mcL Monocytes # 0.4 (0.0-1.3) K/mcL Eosinophils # 0.0 (0.0-0.6) K/mcL Basophils # 0.0 (0.0-0.2) K/mcL D-Dimer 221 (0-500) ng/mLFEU Sodium 141 (136-145) mEq/L Potassium 4.2 (3.5-5.1) mEq/L Chloride 101 (98-107) mEq/L Carbon Dioxide 29 (23-29) mEq/L BUN 17 (8-23) mg/dL Creatinine 0.89 (0.60-1.20) mg/dL Est GFR ( Amer) > 60 (> 60) Est GFR (Non-Af Amer) 60 (> 60) BUN/Creatinine Ratio 19 (6-26) Glucose 144 H (70-105) mg/dL Calculated Osmolality 296 (280-300) Calcium 9.4 (8.6-10.3) mg/dL Troponin I < 0.03 (< 0.04) ng/mL - Radiology Data Radiology results reviewed: Yes I reviewed the patient's radiology results. Chest X-Ray 08/08/18 13:02 IMPRESSION: 1 no significant change. D/ / Artemio Disla MD / Artemio Disla MD Interpreting Provider: Artemio Disla MD - EKG Data EKG attestation: Yes I reviewed and interpreted this EKG. EKG results narrative: Patient EKG shows atrial fibrillation with a heart rate of 105 bpm, QRS duration of 85 ms QT/QTc interval of 343/454 ms respectively. There are no significant ST segment elevations, depressions, abnormal T-wave inversions, or any other signs of acute ischemic change. This EKG performed today is generally consistent with previous EKG performed on 07/06/2017.
[2018-08-08 14:24] LABS: Troponin I < 0.03 ng/mL (< 0.04)
[2018-08-08 14:32] LABS: BUN/Creatinine Ratio 19 (6-26); Blood Urea Nitrogen 17 mg/dL (8-23); Calcium 9.4 mg/dL (8.6-10.3); Carbon Dioxide 29 mEq/L (23-29); Chloride 101 mEq/L (98-107); Glucose 144 mg/dL (70-105); Osmolality,Calculated 296 (280-300); Potassium 4.2 mEq/L (3.5-5.1); Sodium 141 mEq/L (136-145); eGFR For Non-African Americans 60 (> 60)
[2018-08-08] MEDS ORDERED: 0.9 % Sodium Chloride 500 ML IVC ONE (14:52)
[2018-08-08] MEDS ORDERED: Levofloxacin 750 MG/150 ML 750 MG/150 ML BAG IVPB ONE (15:04)
[2018-08-08] MEDS ORDERED: Naloxone 0.4 MG/ML INJ IVP PRN (17:43)
[2018-08-08] MEDS ORDERED: Ringers Solution, Lactated 1,000 ML IVC SCH (17:45)
--- NOTE | 2018-08-08 17:50 | Internal Med History&Physical ---
Date of Encounter: 08/08/18 Time of Encounter: 17:15 Internal Medicine - H&P: HPI Chief complaint: Shortness of breath, cough Admitted From: Emergency Dept Plans for Post Hospital Care: Home History of present illness: Ms. Martínez is a 88 year old female patient with a history of atrial fibrillation, hypertension, rheumatoid arthritis, hyperlipidemia and congestive heart failure who presented to the ER with complaints of shortness of breath cough and generalized weakness. She reports that symptoms have been going on for about 3 days. ED records stated that her son described that her symptoms have been going on for 5 days now with fevers and chills. She was also apparently hypoxic at home. Patient did received bronchodilator nebs in the ER and feels somewhat better. She does report palpitations. No chest pain. No dizziness or lightheadedness. No nausea or vomiting. No abdominal pain. She denies any spu rosemary production. No recent hospitalizations. Past Med Surg Social Fam HX - Past Medical History Attestation: Yes The following information was validated with the patient. Source: patient Medical history: atrial fibrillation, CHF, hyperlipidemia, hypertension, RA Additional medical history: Bleeding ulcer. hiatal hernia Psychiatric history: no psych history - Past Surgical History Surgical History: hip replacement, knee replacement Additional surgical history: Both knee's have been replaced, both hips. - Social History Smoking Status: Never smoker Smokeless Tobacco Status: No Alcohol use: none Drug use: none - Family History Mother Family Member Ethnicity: Non- Living Status: Hx Family Cardiac Disorders: Yes (HF) Hx Family Respiratory Disorders: No Hx Family Cancer: No Hx Family GI Disorders: No Hx Family Endocrine Disorder: No Hx Family Neuromuscular Disorders: No Hx Family Neurologic Disorders: No Hx Family HEENT Disorders: No Hx Family Autoimmune Disorders: No Father Family Member Ethnicity: Non- Living Status: Hx Family Cardiac Disorders: Yes (AL) Hx Family Respiratory Disorders: No Hx Family Cancer: No Hx Family GI Disorders: No Hx Family Endocrine Disorder: No Hx Family Neuromuscular Disorders: No Hx Family Neurologic Disorders: No Hx Family HEENT Disorders: No Hx Family Autoimmune Disorders: No Brother Family Member Ethnicity: Non- Living Status: Hx Family Cardiac Disorders: Yes (AL x4, Open heart surgery) Internal Medicine - H&P: Meds Simvastatin [Zocor] 40 mg PO HS 07/25/15 [History] Folic Acid 1 mg PO DAILY 07/06/17 [History] Furosemide [Lasix] 60 mg PO DAILY 07/06/17 [History] Hydroxychloroquine [Plaquenuil] 300 mg PO DAILY 07/06/17 [History] Methotrexate [Otrexup] 12.5 mg PO SA 07/06/17 [History] Omeprazole [PriLOSEC] 40 mg PO DAILY 07/06/17 [History] Oxycodone HCl 5 mg PO TID PRN 07/06/17 [History] Potassium Chloride [K-Tab ER] 30 meq PO DAILY 07/06/17 [History] sulfaSALAzine [Sulfasalazine] 500 mg PO BID 07/06/17 [History] Metoprolol [Lopressor] 50 mg PO BID 08/08/18 [History] Rivaroxaban [Xarelto] 20 mg PO DAILY 08/08/18 [History] levoFLOXacin [Levaquin] 750 mg PO DAILY 08/08/18 [History] Allergy/AdvReac Type Severity Reaction Status Date / Time No Known Allergies Allergy Verified 07/06/17 11:28 All Systems PM: A 10-system review of systems was performed and is negative for pertinent findings except as documented above in the HPI. - Constitutional Constitutional: chills, fever(s), lethargy, malaise, no night sweats - EENT Eyes: no change in vision, no discharge, no pain, no photophobia Ears: no ear discharge, no ear pain, no tinnitus Nose, mouth and throat: nasal congestion, no dysphagia, no nasal discharge, no neck pain, no sore throat - Cardiovascular Cardiovascular ROS IM: palpitations, no chest pain, no diaphoresis, no dyspnea, no lightheadedness, no syncope - Respiratory Respiratory: cough, dyspnea, wheezing - Gastrointestinal Gastrointestinal: no abdominal pain, no diarrhea, no hematemesis, no hematochezia, no melena, no nausea, no vomiting - Genitourinary Genitourinary: no change in urinary stream, no dysuria, no flank pain, no hematuria - Musculoskeletal Musculoskeletal ROS IM: no numbness, no tingling - Integumentary Integumentary IM: no rash, no unusual bruising - Neurological Neurological ROS: no confusion, no convulsions, no focal weakness, no numbness, no tingling, no tremor(s) - Hematologic/Lymphatic Hematologic/Lymphatic: no easy bruising - Constitutional Vitals: Temp Pulse Resp BP Pulse Ox 99.9 F H 111 18 127/79 100 08/08/18 12:43 08/08/18 15:56 08/08/18 15:56 08/08/18 13:01 08/08/18 15:56 General appearance: Present: cooperative, A&O X 2, mild distress, pleasant, underweight, answers questions appropriately Exam: . - Eye Eye exam: Present: EOMI, PERRL, conjuntiva pink, sclera anicteric - Neck Neck exam general surgery: Present: supple, trachea midline. Absent: lymphadenopathy - Respiratory Respiratory exam: Present: wheezes, tachypnea. Absent: accessory muscle use, prolonged expiratory phase, rales, rhonchi - Cardiovascular Cardiovascular exam: Present: irregular rhythm, +S1, +S2, tachycardia. Absent: diastolic murmur, gallop, rubs, systolic murmur - GI/Abdominal GI/Abdominal exam: Present: normal bowel sounds, soft, no peritoneal signs. Absent: distended, tenderness - Extremities Exam Extremities exam: Present: warm, radial pulses palpable and symmetrical. Absent: calf tenderness, cyanotic, pedal edema - Neurological Exam Neurological exam: Present: CN II-XII intact, oriented X3, no focal deficits. Absent: facial droop, speech deficit - Skin Skin exam: Present: dry, intact Internal Med - H&P Results - Labs CBC & Chem 7: 08/08/18 13:37 08/08/18 13:37 Labs: Short CBC 08/08/18 Range/Units 13:37 WBC 5.1 (4.3-11.1) K/mcL Hgb 14.7 (11.5-15.4) g/dL Hct 44.5 (35.3-44.9) % Plt Count 193 (140-400) K/mcL Neutrophils # 4.4 (1.6-8.9) K/mcL BMP 08/08/18 13:37 Sodium 141 Potassium 4.2 Chloride 101 Carbon Dioxide 29 BUN 17 Creatinine 0.89 Glucose 144 H Calcium 9.4 Cardiac Enzymes 08/08/18 Range/Units 13:37 Troponin I < 0.03 (< 0.04) ng/mL - EKG Data -: EKG Interpreted by Myself Rate: tachycardia - EKG Data When compared to previous EKG: there is no significant change - Impressions ITS Impressions Chest X-Ray 08/08/18 13:02 IMPRESSION: 1 no significant change. D/ / Artemio Disla MD / Artemio Disla MD Interpreting Provider: Artemio Disla MD - Assessment and plan (1) Bronchitis Current Visit: Yes Status: Acute Assessment and plan: Patient having symptoms of acute bronchitis with cough shortness of breath. Chest x-ray does not show any signs of pneumonia. Patient also does not have any leukocytosis although she does take methotrexate which could be suppressing it. Will check respiratory infection panel. Patient did receive Levaquin in the ER. We will send blood cultures. If respiratory infection panel is posi tive fora viral organism, no indication for further antibiotics. (2) Acute and chronic respiratory failure Current Visit: Yes Status: Acute Assessment and plan: Patient reportedly hypoxic at home. Currently on 2 L O2 supplementation. Will continue. Most likely due to acute bronchitis. Qualifiers: Respiratory failure complication: hypoxia Qualified Code(s): J96.21 - Acute and chronic respiratory failure with hypoxia (3) Atrial fibrillation with RVR Current Visit: Yes Status: Chronic Assessment and plan: Patient in A. fib with RVR currently. Takes Xarelto at home for anticoagulation. Will continue. Also on metoprolol at home. We will continue oral Lopressor. Will give 5 mg of IV Lopressor for now to control heart rate. (4) HTN (hypertension) Current Visit: Yes Status: Chronic Assessment and plan: Blood pressure is well controlled. Continue Lopressor Qualifiers: Hypertension type: essential hypertension Qualified Code(s): I10 - Essential (primary) hypertension (5) Rheumatoid arthritis Current Visit: Yes Status: Chronic Assessment and plan: Patient takes methotrexate. Currently having acute bronchitis. Recommend to hold methotrexate at this time. Qualifiers: Rheumatoid arthritis location: unspecified site Rheumatoid factor presence: unspecified presence Qualified Code(s): M06.9 - Rheumatoid arthritis, unspecified (6) DVT prophylaxis Current Visit: Yes Status: Acute Assessment and plan: Continue Xarelto (7) Congestive heart failure Current Visit: Yes Status: Chronic Assessment and plan: Chronic systolic congestive heart failure. Not in acute exacerbation. EF of 50% per last echocardiogram 1 year back. Qualifiers: Heart failure type: systolic Heart failure chronicity: chronic Qualified Code(s): I50.22 - Chronic systolic (congestive) heart failure - Time Spent With Patient Total time spent is greater than 50% in coordination of care (as documented) at patient's floor/unit and/or counseling patient:
[2018-08-08] MEDS ORDERED: *HR* OxyCODONE Immed Rel 5 MG TABLET PO PRN (18:00)
[2018-08-08] MEDS ORDERED: *HR* Metoprolol 5 MG/5 ML VIAL IVP PRN (18:01)
[2018-08-08] MEDS: Levalbuterol Neb 0.63 MG/3 ML IH SCH ×2 (19:28→21:55)
[2018-08-08] MEDS: sulfaSALAzine 500 MG TABLET PO SCH (22:48)
[2018-08-08] MEDS: predniSONE 20 MG TABLET PO SCH (22:48)
[2018-08-09] MEDS: Levalbuterol Neb 0.63 MG/3 ML IH SCH ×4 (04:18→21:44)
[2018-08-09 05:17] LABS: Basophils % 0.2 %; Hematocrit 41.7 % (35.3-44.9); Hemoglobin 13.4 g/dL (11.5-15.4); Immature Granulocytes % 0.2 % (0-4); Lymphocytes # 0.3 K/mcL (0.6-4.6); Lymphocytes % 6.4 %; Mean Corpuscular HGB Conc 32.1 g/dL (31.6-35.5); Mean Corpuscular Hemoglobin 31.7 pg (28.0-33.3); Mean Corpuscular Volume 98.6 fL (83.0-100.0); Monocytes # 0.2 K/mcL (0.0-1.3); Monocytes % 4.8 %; Neutrophils # 3.9 K/mcL (1.6-8.9); Platelet Count 155 K/mcL (140-400); Red Blood Count 4.23 M/mcL (3.82-4.97); Red Cell Distribution Width 14.2 % (11.5-14.5); Segmented Neutrophils % 88.4 %
[2018-08-09 05:38] LABS: BUN/Creatinine Ratio 18 (6-26); Blood Urea Nitrogen 14 mg/dL (8-23); Calcium 9.3 mg/dL (8.6-10.3); Carbon Dioxide 31 mEq/L (23-29); Chloride 100 mEq/L (98-107); Glucose 161 mg/dL (70-105); Osmolality,Calculated 290 (280-300); Potassium 3.9 mEq/L (3.5-5.1); Sodium 138 mEq/L (136-145); eGFR For Non-African Americans > 60 (> 60)
[2018-08-09] MEDS: Furosemide 40 MG TABLET PO SCH (08:32)
[2018-08-09] MEDS: predniSONE 20 MG TABLET PO SCH (08:34)
[2018-08-09] MEDS: sulfaSALAzine 500 MG TABLET PO SCH ×2 (08:35→20:19)
[2018-08-09] MEDS: Folic Acid 1 MG TABLET PO SCH (08:35)
[2018-08-09 09:22] LABS: Estimated Average Glucose 143 mg/dl; Hemoglobin A1C 6.6 %
[2018-08-09 11:50] LABS: Adenovirus Not Detected (Not Detect); Bordetella Pertussis Not Detected (Not Detect); Chlamydophila pneumoniae Not Detected (Not Detect); Coronavirus 229E Not Detected (Not Detect); Coronavirus HKU1 Not Detected (Not Detect); Coronavirus NL63 Not Detected (Not Detect); Coronavirus OC43 Not Detected (Not Detect); Human Metapneumovirus Not Detected (Not Detect); Human Rhinovirus/Enterovirus Not Detected (Not Detect); Influenza A Subtype 2009 H1 Not Detected (Not Detect); Influenza A Untypeable Not Detected (Not Detect); Influenza B Not Detected (Not Detect); Mycoplasma pneumoniae Not Detected (Not Detect); Parainfluenza Virus 1 Not Detected (Not Detect); Parainfluenza Virus 2 Not Detected (Not Detect); Parainfluenza Virus 3 Not Detected (Not Detect); Parainfluenza Virus 4 Not Detected (Not Detect); Respiratory Syncytial Virus DETECTED (Not Detect)
--- NOTE | 2018-08-09 14:29 | Internal Med Progress Note ---
Hospitalist Progress Note - Encounter Date of Encounter: 08/09/18 Time of Encounter: 11:00 - Subjective Interval History: Patient is feeling much better today. Denies any chest pain. When I checked on her, she was not on O2 supplementation and was not dyspneic. No palpitations. No nausea or vomiting. No fever reported overnight. - Exam Vitals: Temp Pulse Resp BP Pulse Ox 98.1 F 102 20 134/79 94 08/09/18 10:30 08/09/18 10:30 08/09/18 10:34 08/09/18 10:30 08/09/18 10:34 Exam: General: Patient is alert, no acute distress, oriented x 3 ENT: Mucous membranes moist Respiratory: Bilateral wheezing Cardiovascular: Regular rate and rhythm. s1 and s2 normal No clicks, rubs, gallops, or murmurs. No pedal edema Abdomen: Abdomen is soft, nontender. Bowel sounds are present Musculoskeletal: Spontaneously moving all extremities Skin: warm, dry, intact. Neuro: Alert oriented x 3 normal cranial nerves, no focal deficits - Assessment and Plan (1) Bronchitis Current Visit: Yes Status: Acute Assessment and Plan: Patient's respiratory infection panel positive for RSV. Likely cause of her bronchitis. Will continue to treat symptomatically. Patient is clinically feeling better. Does have wheezing and given her advanced age, at risk for developing superimposed bacterial pneumonia. We will continue bronchodilators. Monitor for fever. WBC count remains normal. Continue prednisone. (2) Acute and chronic respiratory failure Current Visit: Yes Status: Acute Assessment and Plan: Improved. Continue to wean FiO2 as tolerated. (3) Atrial fibrillation with RVR Current Visit: Yes Status: Chronic Assessment and Plan: Heart rate remains elevated but better overall. We will add Cardizem and assess response. On anticoagulation with Xarelto (4) HTN (hypertension) Current Visit: Yes Status: Chronic Assessment and Plan: Well-controlled. (5) Rheumatoid arthritis Current Visit: Yes Status: Chronic Assessment and Plan: Continue Plaquenil. Hold next dose of methotrexate due to acute illness. (6) DVT prophylaxis Current Visit: Yes Status: Acute Assessment and Plan: With Xarelto (7) Congestive heart failure Current Visit: Yes Status: Chronic Assessment and Plan: Continue oral Lasix - Time Spent with Patient Total time spent is greater than 50% in coordination of care (as documented) at patient's floor/unit and/or counseling patient: Internal Medicine: Result - Labs CBC & Chem 7: 08/09/18 04:52 08/09/18 04:52 Labs: Short CBC 08/09/18 Range/Units 04:52 WBC 4.4 (4.3-11.1) K/mcL Hgb 13.4 (11.5-15.4) g/dL Hct 41.7 (35.3-44.9) % Plt Count 155 (140-400) K/mcL Neutrophils # 3.9 (1.6-8.9) K/mcL BMP 08/08/18 08/09/18 13:37 04:52 Sodium 141 138 Potassium 4.2 3.9 Chloride 101 100 Carbon Dioxide 29 31 H BUN 17 14 Creatinine 0.89 0.76 Glucose 144 H 161 H Calcium 9.4 9.3 - ABG Interpretation ABG results: PT/INR, D-dimer D-Dimer 221 ng/mLFEU (0-500) 08/08/18 13:37 Consult Discharge Plan - Plan Referrals: Bhavna Colunga MD [Primary Care Provider] - (2) Acute and chronic respiratory failure Qualifiers: Respiratory failure complication: hypoxia Qualified Code(s): J96.21 - Acute and chronic respiratory failure with hypoxia (4) HTN (hypertension) Qualifiers: Hypertension type: essential hypertension Qualified Code(s): I10 - Essential (primary) hypertension (5) Rheumatoid arthritis Qualifiers: Rheumatoid arthritis location: unspecified site Rheumatoid factor presence: unspecified presence Qualified Code(s): M06.9 - Rheumatoid arthritis, unspecified (7) Congestive heart failure Qualifiers: Heart failure type: systolic Heart failure chronicity: chronic Qualified Code(s): I50.22 - Chronic systolic (congestive) heart failure
[2018-08-09] MEDS: *HR* Rivaroxaban 10 MG TABLET PO SCH (17:42)
[2018-08-09] MEDS: Diltiazem CD (24hr) 120 MG CAPSULE PO SCH (17:42)
--- NOTE | 2018-08-09 21:12 | Electrocardiograph Report ---
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
[2018-08-10] MEDS: Levalbuterol Neb 0.63 MG/3 ML IH SCH ×4 (03:43→22:24)
[2018-08-10] MEDS: Furosemide 40 MG TABLET PO SCH (09:49)
[2018-08-10] MEDS: Diltiazem CD (24hr) 120 MG CAPSULE PO SCH (09:50)
[2018-08-10] MEDS: Folic Acid 1 MG TABLET PO SCH (09:50)
[2018-08-10] MEDS: sulfaSALAzine 500 MG TABLET PO SCH ×2 (09:50→21:06)
[2018-08-10] MEDS: predniSONE 20 MG TABLET PO SCH (09:50)
--- NOTE | 2018-08-10 13:48 | Discharge Summary ---
- NOTES TO OUTPATIENT PROVIDER Notes to Outpatient Provider: Patient with a history of atrial fibrillation, hypertension, hyperlipidemia, rheumatoid arthritis was hospitalized here with symptoms of upper respiratory illness. She initially required supplemental oxygen but was able to be weaned down quickly. She was given antibiotics in the on suspicion of pneumonia. However respiratory infection panel was positive for RSV which is likely cause of her symptoms. She also had a negative chest x-ray. She was treated with bronchodilators and steroids with significant improvement in her symptoms. She did have a rapid heart rate which responded to oral Cardizem. Patient will be discharged today on a prednisone taper and will co ntinue to take Cardizem for her A. fib. She will follow up with her primary care provider for further management. She does not require supplemental oxygen at this time. Orders not resulted at time of discharge: Pending orders 08/08/18 18:03 Legionella Antigen [RM] Routine S. Pneumoniae Antigen [RM] Routine 08/08/18 18:17 Culture,Blood [BC] Routine Date of Encounter: 08/10/18 Time of Encounter: 13:46 - Discharge Diagnosis (1) Bronchitis Priority: Primary Status: Acute Assessment and Plan: RSV bronchitis (2) Acute and chronic respiratory failure Priority: Secondary Status: Resolved Qualifiers: Respiratory failure complication: hypoxia Qualified Code(s): J96.21 - Acute and chronic respiratory failure with hypoxia (3) Atrial fibrillation with RVR Priority: Secondary Status: Chronic (4) HTN (hypertension) Priority: Secondary Status: Chronic Qualifiers: Hypertension type: essential hypertension Qualified Code(s): I10 - Essential (primary) hypertension (5) Rheumatoid arthritis Priority: Secondary Status: Chronic Qualifiers: Rheumatoid arthritis location: unspecified site Rheumatoid factor presence: unspecified presence Qualified Code(s): M06.9 - Rheumatoid arthritis, unspecified (6) DVT prophylaxis Priority: Secondary Status: Acute (7) Congestive heart failure Priority: Secondary Status: Chronic Qualifiers: Heart failure type: systolic Heart failure chronicity: chronic Qualified Code(s): I50.22 - Chronic systolic (congestive) heart failure Hospital course: Ms. Martínez is a 88 year old female Patient with a history of atrial fibrillation, hypertension, hyperlipidemia, rheumatoid arthritis was hospitalized here with symptoms of upper respiratory illness. She initially required supplemental oxygen but was able to be weaned down quickly. She was given antibiotics in the on suspicion of pneumonia. However respiratory infection panel was positive fo r RSV which is likely cause of her symptoms. She also had a negative chest x- ray. She was treated with bronchodilators and steroids with significant improvement in her symptoms. She did have a rapid heart rate which responded to oral Cardizem. Patient will be discharged today on a prednisone taper and will continue to take Cardizem for her A. fib. She will follow up with her primary care provider for further management. She does not require supplemental oxygen at this time. Discharge discussed with: patient, nurse - Time Spent with Patient Total time spent providing and/or coordinating discharge services: Greater than 30 minutes (35 min) - Discharge Medications Prescriptions: Diltiazem CD (24hr) [Cardizem CD] 120 mg PO DAILY #30 cap.er.24h Levalbuterol [Xopenex] 1 puff IH Q6H PRN #1 inhaler PRN Reason: Shortness Of Breath predniSONE [PredniSONE] 10 mg PO DAILY 6 Days #12 tablet Home Medications: Simvastatin [Zocor] 40 mg PO HS 07/25/15 [History] Folic Acid 1 mg PO DAILY 07/06/17 [History] Furosemide [Lasix] 60 mg PO DAILY 07/06/17 [History] Hydroxychloroquine [Plaquenuil] 300 mg PO DAILY 07/06/17 [History] Methotrexate [Otrexup] 12.5 mg PO SA 07/06/17 [History] Omeprazole [PriLOSEC] 40 mg PO DAILY 07/06/17 [History] Oxycodone HCl 5 mg PO TID PRN 07/06/17 [History] Potassium Chloride [K-Tab ER] 30 meq PO DAILY 07/06/17 [History] sulfaSALAzine [Sulfasalazine] 500 mg PO BID 07/06/17 [History] Metoprolol [Lopressor] 50 mg PO BID 08/08/18 [History] Rivaroxaban [Xarelto] 20 mg PO DAILY 08/08/18 [History] Diltiazem CD (24hr) [Cardizem CD] 120 mg PO DAILY #30 cap.er.24h 08/10/18 [Rx] Levalbuterol [Xopenex] 1 puff IH Q6H PRN #1 inhaler 08/10/18 [Rx] predniSONE [PredniSONE] 10 mg PO DAILY 6 Days #12 tablet 02/08/19 [Rx] Allergies/Adverse Reactions: Allergy/AdvReac Type Severity Reaction Status Date / Time No Known Allergies Allergy Verified 07/06/17 11:28 Date of admission: 08/08/18 18:55 Primary care physician: Bhavna Colunga MD Consults: 08/08/18 23:27 Consult to Nutrition [CONS] Routine Comment: Consulting Provider: NUTRITION Reason for Dietary Consult: MST Score 08/09/18 14:52 Consult to Case Management [CONS] Routine Comment: Consult to Clinical Services Professional [CONS] Routine Reason for SW Consult: home health 08/09/18 14:53 Consult to Occupational Therapy [CONS] Stat Comment: Evaluate, develop and implement POC Reason for Consult: weakness Does patient have active BEDREST order?: No Is patient medically & hemodynamically stable?: Yes Patient assessed for mobility or mobilized this visit?: Yes Discharging clinician: Hemanth Kurtz Anticipated date of discharge: 08/10/18 - Constitutional Vitals: Temp Pulse Resp BP Pulse Ox 97.8 F 101 19 110/65 92 08/10/18 12:24 08/10/18 12:24 08/10/18 12:24 08/10/18 12:24 08/10/18 12:24 General appearance: Present: cooperative, A&O X 2, pleasant, no acute distress, underweight, answers questions appropriately Exam: . - Respiratory Respiratory exam: Present: CTAB, wheezes (mild). Absent: accessory muscle use, rales, rhonchi - Cardiovascular Cardiovascular exam: Present: RRR, +S1, +S2. Absent: diastolic murmur, gallop, rubs, systolic murmur - GI/Abdominal GI/Abdominal exam: Present: normal bowel sounds, soft, no peritoneal signs. Absent: distended, tenderness - Extremities Exam Extremities exam: Present: warm, radial pulses palpable and symmetrical. Absent: calf tenderness, cyanotic, pedal edema - Patient Status Disposition: Home Health Service Condition: Good Functional capacity at discharge: uses cane/walker Overall status at discharge: patient is progressing back to baseline - Discharge Instructions Instructions: Chronic Hypertension (DC), Acute Respiratory Distress Syndrome (DC), Atrial Fibrillation (DC) Follow Up With: Bhavna Colunga MD [Primary Care Provider] - (in 1-2 weeks) Additional Instructions: Please skip the next dose of methotrexate scheduled for tomorrow. You may resume it next week. - Diet and Activity Diet: low fat, low cholesterol, low salt diet
--- NOTE | 2018-08-10 13:53 | Physician Discharge Referral ---
Home Health/Hosp Referral Info Transfer to: Home Health Provider in Charge Post Discharge: PCP - Diagnosis (1) Bronchitis Priority: Primary Status: Acute (2) Acute and chronic respiratory failure Priority: Secondary Status: Resolved (3) Atrial fibrillation with RVR Priority: Secondary Status: Chronic (4) HTN (hypertension) Priority: Secondary Status: Chronic (5) Rheumatoid arthritis Priority: Secondary Status: Chronic (6) DVT prophylaxis Priority: Secondary Status: Acute (7) Congestive heart failure Priority: Secondary Status: Chronic - Respiratory Orders Smoking Cessation: Smoking cessation has been advised. For more information, call the [place] Tobacco Quit Line at 3-391-WKEW-NOW. - Diet/Nutrition Diet/Nutrition Orders: Cardiac - Activity Activity Orders: Walker - Services Needed Following services are medically necessary services: Nursing, Physical Therapy, Occupational Therapy - Transfer Medications Prescriptions: Diltiazem CD (24hr) [Cardizem CD] 120 mg PO DAILY #30 cap.er.24h Levalbuterol [Xopenex] 1 puff IH Q6H PRN #1 inhaler PRN Reason: Shortness Of Breath predniSONE [PredniSONE] 10 mg PO DAILY 6 Days #12 tablet Home Medications: Simvastatin [Zocor] 40 mg PO HS 07/25/15 [History] Folic Acid 1 mg PO DAILY 07/06/17 [History] Furosemide [Lasix] 60 mg PO DAILY 07/06/17 [History] Hydroxychloroquine [Plaquenuil] 300 mg PO DAILY 07/06/17 [History] Methotrexate [Otrexup] 12.5 mg PO SA 07/06/17 [History] Omeprazole [PriLOSEC] 40 mg PO DAILY 07/06/17 [History] Oxycodone HCl 5 mg PO TID PRN 07/06/17 [History] Potassium Chloride [K-Tab ER] 30 meq PO DAILY 07/06/17 [History] sulfaSALAzine [Sulfasalazine] 500 mg PO BID 07/06/17 [History] Metoprolol [Lopressor] 50 mg PO BID 08/08/18 [History] Rivaroxaban [Xarelto] 20 mg PO DAILY 08/08/18 [History] Diltiazem CD (24hr) [Cardizem CD] 120 mg PO DAILY #30 cap.er.24h 08/10/18 [Rx] Levalbuterol [Xopenex] 1 puff IH Q6H PRN #1 inhaler 08/10/18 [Rx] predniSONE [PredniSONE] 10 mg PO DAILY 6 Days #12 tablet 08/10/18 [Rx] Allergies/Adverse Reactions: Allergy/AdvReac Type Severity Reaction Status Date / Time No Known Allergies Allergy Verified 07/06/17 11:28 Certification: Further, I certify that my clinical findings support that this patient is homebound (i.e. absences from home require considerable and taxing effort and are for medical reasons or mormonism services or infrequently or short duration when for other reasons) because: Homebound Reason: Patient requires assistance of a person or device to safely leave home Attestation: My signature below is to certify that this patient is under my care and that I, or nurse practitioner, or a physician's placement assistant working with me, has a [id number] encounter with this patient.
[2018-08-10] MEDS: *HR* Rivaroxaban 10 MG TABLET PO SCH (18:34)
[2018-08-11] MEDS: Levalbuterol Neb 0.63 MG/3 ML IH SCH ×2 (04:22→10:00)
[2018-08-11 08:59] VITALS: BP 117/79
[2018-08-11] MEDS: Diltiazem CD (24hr) 120 MG CAPSULE PO SCH (10:06)
[2018-08-11] MEDS: predniSONE 20 MG TABLET PO SCH (10:06)
[2018-08-11] MEDS: Folic Acid 1 MG TABLET PO SCH (10:06)
[2018-08-11] MEDS: Furosemide 40 MG TABLET PO SCH (10:06)
[2018-08-11] MEDS: sulfaSALAzine 500 MG TABLET PO SCH (10:06)
== END 2018-08-11 11:23 | disposition home health service (06) ==
LOC: 2ANU 12:42 → EMEROOARM 12:42 → SUATTDRO 18:55 → 2ANU 19:57
PROVIDERS: ADMIT Internal Medicine; ATTEND Internal Medicine

== ENCOUNTER 2020-11-28 19:26 | Observation (INO) ==
[2020-11-28] MEDS ORDERED: Isovue-370 500 ML BOTTLE IVP ONE (20:13)
[2020-11-28 20:45] LABS: Basophils % 0.7 %; Eosinophils # 0.1 K/mcL (0.0-0.6); Eosinophils % 2.7 %; Hematocrit 43.3 % (35.3-44.9); Hemoglobin 13.3 g/dL (11.5-15.4); Immature Granulocytes % 0.2 % (0-4); Lymphocytes % 24.4 %; Mean Corpuscular HGB Conc 30.7 g/dL (31.6-35.5); Mean Corpuscular Hemoglobin 30.6 pg (28.0-33.3); Mean Corpuscular Volume 99.5 fL (83.0-100.0); Mean Platelet Volume 10.1 fL (9.4-12.4); Monocytes # 0.4 K/mcL (0.0-1.3); Monocytes % 10.3 %; Neutrophils # 2.5 K/mcL (1.6-8.9); Nucleated Red Blood Cells 0.5 /100 WBC (0); Platelet Count 214 K/mcL (140-400); Red Blood Count 4.35 M/mcL (3.82-4.97); Red Cell Distribution Width 16.8 % (11.5-14.5); Segmented Neutrophils % 61.7 %; White Blood Count 4.1 K/mcL (4.3-11.1)
[2020-11-28 21:05] LABS: BUN/Creatinine Ratio 25 (6-26); Blood Urea Nitrogen 22 mg/dL (8-23); Calcium 9.1 mg/dL (8.6-10.3); Carbon Dioxide 29 mEq/L (23-29); Chloride 106 mEq/L (98-107); Glucose 106 mg/dL (70-105); Osmolality,Calculated 296 (280-300); Potassium 4.6 mEq/L (3.5-5.1); Sodium 141 mEq/L (136-145); eGFR For African Americans > 60 (> 60); eGFR For Non-African Americans > 60 (> 60)
[2020-11-29] MEDS ORDERED: Levalbuterol 1 PUFF INHALER IH PRN (01:10)
[2020-11-29] MEDS ORDERED: Ondansetron 4 MG/2 ML VIAL IVP PRN (01:28)
[2020-11-29] MEDS ORDERED: Naloxone 0.4 MG/ML INJ IVP PRN (01:28)
[2020-11-29] MEDS ORDERED: Acetaminophen 325 MG TABLET PO PRN (01:28)
[2020-11-29 02:20] LABS: Eosinophils # 0.1 K/mcL (0.0-0.6); Eosinophils % 2.3 %; Hemoglobin 13.3 g/dL (11.5-15.4); Immature Granulocytes % 0.3 % (0-4); Lymphocytes # 0.7 K/mcL (0.6-4.6); Lymphocytes % 18.6 %; Mean Corpuscular HGB Conc 30.9 g/dL (31.6-35.5); Mean Corpuscular Hemoglobin 30.7 pg (28.0-33.3); Mean Corpuscular Volume 99.3 fL (83.0-100.0); Monocytes # 0.4 K/mcL (0.0-1.3); Monocytes % 9.4 %; Neutrophils # 2.7 K/mcL (1.6-8.9); Platelet Count 214 K/mcL (140-400); Red Blood Count 4.33 M/mcL (3.82-4.97); Red Cell Distribution Width 16.8 % (11.5-14.5); Segmented Neutrophils % 68.4 %; White Blood Count 3.9 K/mcL (4.3-11.1)
[2020-11-29 02:35] LABS: BUN/Creatinine Ratio 25 (6-26); Blood Urea Nitrogen 21 mg/dL (8-23); Calcium 9.1 mg/dL (8.6-10.3); Carbon Dioxide 29 mEq/L (23-29); Chloride 105 mEq/L (98-107); Glucose 146 mg/dL (70-105); Osmolality,Calculated 296 (280-300); Potassium 3.8 mEq/L (3.5-5.1); Sodium 140 mEq/L (136-145); eGFR For African Americans > 60 (> 60); eGFR For Non-African Americans > 60 (> 60)
[2020-11-29 06:50] VITALS: BP 113/74
[2020-11-29] MEDS ORDERED: sulfaSALAzine 500 MG TABLET PO SCH (09:00)
[2020-11-29] MEDS ORDERED: Furosemide 40 MG TABLET PO SCH (09:00)
== END 2020-11-29 15:28 | disposition home or self-care (01) ==
LOC: 3NENU 19:26 → EMEROOARM 19:26 → 3NENU 11-29 00:26
PROVIDERS: ADMIT Family Medicine; ATTEND Family Medicine